=== PATIENT | female | born 1965 | race Caucasian/White ===

== ENCOUNTER 2024-02-14 12:52 | Outpatient (OUT) | payer OTHER, SELFPAY ==
--- NOTE | 2024-02-14 13:01 | XR_ITS ---
The [address] [address] Patient Name: BERNADETTE BAUMANN MRN: [id number] date: 1965 Sex: F Assigned Patient Location: [facility] Current Patient Location: Accession/Order Number: [id number] Exam Date: 02/14/2024 13:15 Report Date: 02/15/2024 06:16 At the request of: ONELIA CASIANO Procedure: XR ribs LT min 3V w CXR1V EXAMINATION: XR ribs LT min 3V w CXR1V HISTORY: Left Rib Pain, Fall COMPARISON: XR chest 04/18/2019 FINDINGS: LUNGS: No significant pulmonary parenchymal abnormalities. PLEURA: No pneumothorax, effusion, or pleural thickening. MEDIASTINUM: No visible mass or adenopathy. CARDIAC: No cardiomegaly or cardiac silhouette abnormality. RIBS: Normal. No significant arthropathy or acute abnormality. OTHER: Negative. XR/XR ribs LT min 3V w CXR1V IMPRESSION: 1. No appreciable rib fracture. 2. No acute cardiopulmonary process. Electronically authenticated by: SUNITA GILES Date: 02/15/2024 06:16
== END 2024-02-14 12:53 | disposition home or self-care (01) ==
LOC: RAD 12:57
PROVIDERS: PCP Internal Medicine; Visit Provider Nurse Practitioner Family
DX: R07.81 Pleurodynia (principal); W19.XXXA Unspecified fall, initial encounter
CPT/HCPCS: 71101

== ENCOUNTER 2025-04-02 13:40 | Outpatient (OUT) | payer BC, SELFPAY ==
--- OUTSIDE RECORDS SUMMARY | 2025-04-02 13:49 | XMS_ITS | CCD ---
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 Name Role Phone MARTHA, DR PATINO Primary Care Unavailable MARTHA, DR PATINO Admitting Unavailable MARTHA, DR PATINO Attending Unavailable MARTHA, DR PATINO Consulting Unavailable EVE, DR SUSI Beebe Consulting Unavailable MARTHA, DR PATINO Consulting Unavailable MARTHA, DR PATINO Primary Care Unavailable MARTHA, DR PATINO Admitting Unavailable MARTHA, DR PATINO Attending Unavailable Ryan Olivas Unavailable Manpreet, [facility] Martha Brooks Admitting U navailable Demboske, [facility] Martha Brooks Attending U navailable Raymond, Alonso Hurst Attending Unavailable RaymondAlonso Admitting Unavailable Demboske, Martha Brooks Attending Unavailable Demboske, Martha Brooks Admitting Unavailable Raymond, Alonso Hurst Admitting Unavailable Raymond, Alonso Hurst Attending Unavailable Raymond, Alonso Hurst Attending Unavailable RaymondAlonso Admitting Unavailable RaymondAlonso Referring Unavailable Demboske, [facility] Martha Brooks Attending U navailable Demboske, [facility] Martha Brooks Attending U navailable Raymond, Alonso Hurst Attending Unavailable RaymondAlonso jessica Referring Unavailable Raymond, Alonso Hurst Admitting Unavailable Raymond, Alonso Hurst Admitting Unavailable RaymondAlonso Attending Unavailable DemboskeMartha Attending Unavailable Demboske, Martha Brooks Attending Unavailable Demboske, Martha Brooks Admitting Unavailable Al-Marrawi, Esteban Doyle Attending Unavailabl e Al-Marrawi, Esteban Doyle Attending Unavailabl e Al-Marrajonnathan, Esteban Doyle Admitting Unavailabl e Demboske, Martha Brooks Admitting Unavailable Demboske, Martha Brooks Attending Unavailable Demboslewis, Martha Brooks Attending Unavailable Demolivia, Martha Brooks Referring Unavailable Al-Marwi, Esteban Doyle Attending Unavailabl e Al-Marrawi, Esteban Doyle Attending Unavailabl e Al-Marrawi, Mhd Yaser Admitting Unavailabl e Al-Marrawi, Mhd Yaser Attending Unavailabl e Al-Marrawi, Mhd Yaser Admitting Unavailabl e Al-Marrawi, Mhd Yaser Attending Unavailabl e Al-Marrawi, Mhd Yaser Attending Unavailabl e Al-Marrawi, Mhd Yaser Attending Unavailabl e Al-Marrawi, Mhd Yaser Attending Unavailabl e Al-Marrawi, Mhd Yaser Attending Unavailabl e Al-Marrawi, Mhd Yaser Attending Unavailabl e Al-Marrawi, Mhd Yaser Admitting Unavailabl e Al-Marrawi, Mhd Yaser Attending Unavailabl e Al-Marrawi, Mhd Yaser Attending Unavailabl e Ryan Olivas DO Primary Care Provider Ryan Olivas DO Attending Provider [phone] Allergies Allergy ClassificationReported Allergen(s)Allergy TypeDate of OnsetReaction(s) Facility (1 source)patient allergy list reviewed by nurse or physiciaPropensity to adverse [id number]:Photobucket Other Medications Current Medications MedicationDrug Class(es)DatesSig (Normalized)Sig (Original)etodolac 400 mg oral tablet (1 source)Nonsteroidal Anti-inflammatory DrugStart: 11-13-7064xgpd 1 tablet by mouth every twelve hoursEtodolac 400 MG 1 tablet with food Orally Twice a day for 30 days Apr, ActiveNo Name (No Known Home Meds) (1 source)Start: 32-15-6881Dl Name (No Known Home Meds) Active March 30, 2025 12:00am Completed/Discontinued Medications MedicationDrug Class(es)DatesSig (Normalized)Sig (Original)azithromycin 250 mg oral tablet (8 sources)Macrolide AntimicrobialStart: 04-11-2024 End: 40-59-1981Yqxharracsgc 250 mg tablet Discontinued 250 MG PO .COMPLEX 6 5 0 April 11, 2024 12:00am 2024 1:38pm 2 tabs on first day followed by 1 tab on days 2-5Start: 81-49-3613Mgmenaxfouyc 250 MG as directed Orally daily for 5 days May, Activebenzonatate 200 mg oral capsule (4 sources)Non-narcotic AntitussiveStart: 04-11-2024 End: 00-56-9064jady 1 capsule by mouth three times dailyBenzonatate 200 mg capsule Discontinued 200 MG PO Three times daily 30 10 0 April 11, 2024 12:00am June 27, 2024 1:38pmbrompheniramine maleate 0.4 mg/ml / dextromethorphan hydrobromide 2 mg/ml / pseudoephedrine hydrochloride 6 mg/ml oral solution (3 sources)alpha-Adrenergic Agonist, Uncompetitive U-cwdxue-U-aspartate Receptor Antagonist, Sigma-1 AgonistStart: 06-29-2024 End: 57-47-2947hrle 1 mL by mouth every six hours as needed Wyleskbonbohpqg-Zeckqsypb-Pm (Bromfed Dm) 2-30-10 mg/5 mL syrup Discontinued 10 ML PO Every 6 hoursas needed for cold symptoms 200 10 0 June 29, 2024 1:00am July 30, 2024 11:38am12 hr guaiFENesin 1200 mg extended release oral tablet (3 sources)Start: 06-29-2024 End: 50-40-1918tmgf 1 tablet by mouth twice daily, then take 1 tablet by mouth every twelve hoursGuaifenesin (Mucinex) 1,200 mg tablet extended release 12hr Discontinued 1200 MG PO Twice daily June 29, 2024 1:00am July 30, 2024 11:38amhyoscyamine sulfate 0.125 mg sublingual tablet (7 sources)Start: 74-19-9289wrmm 1 tablet under the tongue four times daily as neededHyoscyamine Sulfate SL 0.125 MG 1 tablet Sublingual qid as needed for abdominal cramping, diarrhea for 5 days October, Not-Taking/PRNStart: 15-56-3491tsed 1 tablet under the tongue three times daily as neededHyoscyamine Sulfate SL 0.125 MG 1 tablet under the tongue and allow to dissolve as needed Sublingual Three times a day as needed for diarrhea, cramping for 10 days Jul, Not-Taking/PRNmethylPREDNISolone 4 mg oral tablet (5 sources)CorticosteroidStart: 02-19-2024 End: 68-15-6599chfq 1 tablet by mouth onceMethylprednisolone (Medrol (Manny)) 4 mg tablets,dose pack Discontinued 0 PO per package directions 21 0 February 19, 2024 12:00am June 27, 2024 1:38pm PO PER PKG DIRNirmatrelvir-Ritonavir (1 source)Start: 06-27-2024 End: 68-31-7815Rezkgdcprenf-Ritonavir (Paxlovid) 300 mg (150 mg x 2)-100 mg tablets,dose pack Discontinued 0 PO .COMPLEX 30 0 June 27, 2024 1:00am July 30, 2024 11:38am take TWO 150 mg tablets of nirmatrelvir with ONE 100 mg tablet of ritonavir twice daily for 5 days PONirmatrelvir-Ritonavir (Paxlovid) 300 mg (150 mg x 2)-100 mg tablets,dose pack (2 sources)Start: 06-27-2024 End: 11-73-4299Nzebftbqcxcm-Ritonavir (Paxlovid) 300 mg (150 mg x 2)-100 mg tablets,dose pack Discontinued 0 PO .COMPLEX 30 June 27, 2024 12:00am July 30, 2024 10:38am take TWO 150 mg tablets of nirmatrelvir with ONE 100 mg tablet of ritonavir twice daily for 5 days POStart: 85-52-9018Hhzoyhnsvtfl- Ritonavir (Paxlovid) 300 mg (150 mg x 2)-100 mg tablets,dose pack Active 0 PO .MCQCPKW77 June 27, 2024 12:00am take TWO 150 mg tablets of nirmatrelvir with ONE 100 mg tablet of ritonavir twice daily for 5 days POofloxacin 3 mg/ml ophthalmic solution (3 sources)Quinolone AntimicrobialStart: 06-29-2024 End: 41-30-0929qkbd 0.3 drop(s) into the eye(s) four times dailyOfloxacin 0.3 % drops Discontinued 2 DROPS EYE-BOTH Four times daily 10 7 0 June 29, 2024 1:00am July 30, 2024 11:38amStart: 06-29-2024 End: 94-47-5472mlag 0.3 drop(s) into the eye(s) four times dailyOfloxacin 0.3 % drops Discontinued 2 DROPS EYE-BOTH Four times daily 10 June 29, 2024 12:00am July 30, 2024 10:38amondansetron 4 mg disintegrating oral tablet (4 sources)Serotonin-3 Receptor AntagonistStart: 70-13-3751clal 1 tablet by mouth every six hours as needed for nauseaOndansetron 4 MG 1 tablet on the tongue and allow to dissolve Orally Every 6 hours as needed for nausea for 10 days Jul, Not-Taking/PRNoseltamivir 75 mg oral capsule (2 sources)Neuraminidase InhibitorStart: 07-30-2024 End: 83-11-7645uzmc 1 capsule by mouth twice dailyOseltamivir (Tamiflu) 75 mg capsule Discontinued 75 MG PO Twice daily 10 July 30, 2024 1:00am March 30, 2025 3:43pm Problems Active Problems Problem ClassificationProblemDateDocumented DateEpisodic/ChronicAcute bronchitis (5 sources)Acute bronchitis; Translations: [Acute bronchitis due to other specified organisms]EpisodicComplications of surgical procedures or medical care (2 sources)Post-surgical malabsorption; Translations: [Other and unspecified postsurgical nonabsorption]Onset: 47-36-3394UdknerdO Codes: Fall (8 sources)Fall; Translations: [Unspecified fall, initial encounter]02-13-2024 EpisodicFever of unknown origin (2 sources)Fever; Translations: [Fever, unspecified]20-29-5548FgsdxzzvZbmbo and electrolyte disorders (2 sources)DehydrationEpisodicInflammation; infection of eye (except that caused by tuberculosis or sexually transmitteddisease) (3 sources)Bacterial conjunctivitis; Translations: [Unspecified conjunctivitis] 55-51-7739LlmggiavIshtboyxc (3 sources)Influenza due to Influenza A virus; Translations: [Influenza due to other identified influenza virus with other respiratory manifestations] 44-63-0663FcqwpngoJueglnhplkr deficiencies (4 sources)Vitamin D deficiency; Translations: [Vitamin D deficiency, unspecified]Onset: 350735-32-6112YlscojtItjyxghumfjryx (3 sources)Osteoarthritis of left foot; Translations: [Primary osteoarthritis, left ankle and foot]00-60-1652CzeuyiuVqkas connective tissue disease (4 sources)Pain in left foot; Translations: [Pain in left foot]EpisodicOther connective tissue disease (2 sources)Pain in left foot; Translations: [Pain in left foot]EpisodicOther gastrointestinal disorders (2 sources)Diarrhea, unspecifiedEpisodicOther hematologic conditions (2 sources)Personal history of diseases of the blood and blood-forming organs and certain disorders involving the immune mechanism; Translations: [Disease of blood AND/OR blood-forming organ]EpisodicOther lower respiratory disease (6 sources)Rib pain; Translations: [Pleurodynia]55-14-9433NwsvrmkbNbigy lower respiratory disease (4 sources)Pleurodynia; Translations: [Chest pain, unspecified]02-13-2024 EpisodicOther lower respiratory disease (2 sources)Productive cough -clear sputum; Translations: [Cough productive of clear sputum]41-00-5898PjqogbdoNnnms nervous system disorders (1 source)Chronic pain; Translations: [Other chronic pain]ChronicOther upper respiratory infections (2 sources)Acute maxillary sinusitis; Translations: [Acute maxillary sinusitis, unspecified]EpisodicSpondylosis; intervertebral disc disorders; other back problems (6 sources)Cervical spondylosis without myelopathy; Translations: [Other spondylosis with radiculopathy, cervical region]ChronicSpondylosis; intervertebral disc disorders; other back problems (5 sources)Cervical radiculopathy; Translations: [Radiculopathy, cervical region]EpisodicSuperficial injury; contusion (12 sources)Contusion of left foot, initial encounter; Translations: [Contusion of foot]Onset: 68-31-6370WogpawkwGsyoqevlproh (3 sources)CONTACT W/AND (SUSP) EXPOS COVID-19; Translations: [CONTACT W/AND (SUSP) EXPOS COVID-19]Onset: 72-51-9545Pzxnlpnipzay (1 source)Exposure to acute respiratory syndrome coronavirus 2; Translations: [Contact with and (suspected) exposure to COVID-19]Unclassified (1 source)Low back pain, unspecified; Translations: [Low back pain, unspecified] Unclassified (1 source)Contact with and (suspected) exposure to COVID-19; Translations: [Contact with and (suspected) exposure to COVID-19]Viral infection (11 sources)Viral disease; Translations: [Unspecified viral infection, in conditions classified elsewhere and of unspecified site]Onset: 08-02-2018 86-60-7522Xfayxrjw Past or Other Problems Problem ClassificationProblemDateDocumented DateEpisodic/ChronicAbdominal pain (3 sources)Left lower quadrant pain; Translations: [Abdominal pain]Onset: 91-08-6148HxyumpthLllkollcp infection; unspecified site (1 source)Bacterial infectious disease; Translations: [Bacterial infection, unspecified, in conditions classified elsewhere and of unspecified site]Onset: 45-78-4271LlylvtolOyawskkz of mouth; excluding dental (2 sources)Abscess of oral tissue; Translations: [Cellulitis and abscess of mouth]Onset: 41-59-6532CcabddmxHkgjjvidoj infection (1 source)Viral enteritis; Translations: [Intestinal infection due to other organism, NEC]Onset: 62-43-6804ClvfgfpmOqjbk disorders and dislocations; trauma-related (2 sources)Current tear of lateral cartilage AND/OR meniscus of knee; Translations: [Peripheral tear of lateral meniscus, current injury, left knee, initial encounter]Onset: 39-89-5251PecqesrpIeuxcd and vomiting (3 sources)Nausea; Translations: [Nausea]Onset: 44-23-9439VbfyztbfFidj wounds of extremities (1 source)Open wound of upper arm without complication; Translations: [Open wound of upper arm, without mention of complication]Onset: 26-20-9692Ozzsufvi Other connective tissue disease (3 sources)Plantar fascial fibromatosis; Translations: [Plantar fascial fibromatosis]Onset: 846300-47-9271XjvjzkoqOwwiw connective tissue disease (1 source)Plantar fascial fibromatosis; Translations: [Plantar fascial fibromatosis]Onset: 31-81-5578OzkstkhpDalxp gastrointestinal disorders (1 source)History of bariatric surgical procedure; Translations: [Bariatric surgery status]Onset: 75-28-0158BzdjxgytFusef gastrointestinal disorders (2 sources)Diarrhea; Translations: [Diarrhea]Onset: 39-93-5731BbdobgboXbtfh gastrointestinal disorders (1 source)Bariatric surgery status; Translations: [Bariatric surgery status] Onset: 96-34-9467SilpsopnPziac nervous system disorders (1 source)Paresthesia; Translations: [Paresthesia of skin]Onset: 02-06-2019 EpisodicOther nervous system disorders (1 source)Paresthesia of skin; Translations: [Paresthesia of skin]Onset: 20-16-5651SkkskvkzOcose non-traumatic joint disorders (1 source)Arthralgia of the lower leg; Translations: [Pain in joint, lower leg] Onset: 02-01-8564NuezcxvxVviva nutritional; endocrine; and metabolic disorders (1 source)Body mass index 25-29 - overweight; Translations: [Body mass index 27.0-27.9, adult]Onset: 44-11-9226PecobrhhQhozj nutritional; endocrine; and metabolic disorders (1 source)Overweight; Translations: [Overweight]Onset: 89-13-7306YgvuyqqzOeadh nutritional; endocrine; and metabolic disorders (1 source)Overweight; Translations: [Overweight]Onset: 66-56-6821UcwjwszxJrfro screening for suspected conditions (not mental disorders or infectious disease) (2 sources)Blood chemistry abnormal; Translations: [Other abnormal blood chemistry]Onset: 07-57-9781JevxgaalXvsomr media and related conditions (2 sources)Acute non-suppurative otitis media - serous; Translations: [Acute serous otitis media, unspecified ear]Onset: 84-64-6132JfejwuuhRbgv and subcutaneous tissue infections (2 sources)Cellulitis and abscess of face; Translations: [Cellulitis and abscess of face]Onset: 44-57-1258WiujqbckUpjbcjy and strains (2 sources)Sprain of lateral collateral ligament of knee; Translations: [Sprain of lateral collateral ligamentof right knee, initial encounter]Onset: 02-13-2018 EpisodicUnclassified (1 source)CONTACT W/AND (SUSP) EXPOS COVID-19; Translations: [CONTACT W/AND (SUSP) EXPOS COVID-19]Onset: 18-45-8962Vzrtzbtibtcb (4 sources)Acute right-sided low back pain without sciatica; Translations: [Acute right-sided low back pain without sciatica]Unclassified (1 source)Vaccine product containing only acellular Bordetella pertussis and Clostridium tetani and Corynebacterium diphtheriae antigens (medicinal product); Translations: [Wlmstkddru-nimacnn-rvblaybxa, combined [DTP] [DtaP]]Onset: 33-00-8459Bvwpbbgzyfjh (1 source)Body mass index 27.0-27.9, adult; Translations: [Body mass index 27.0- 27.9, adult]Onset: 29-97-8364Xcjbbfpgvoxi (1 source)Bacterial infection, unspecified, in conditions classified elsewhere and of unspecified site; Translations: [Bacterial infection, unspecified, in conditions classified elsewhere and of unspecified site]Onset: 07-26-2016 Unclassified (1 source)Pain in joint, lower leg; Translations: [Pain in joint, lower leg] Onset: 26-78-6962Txmwcrqossxa (1 source)Bwuxwwgjfr-jnvsrml-deenucdsd, combined [DTP] [DtaP]; Translations: [Rszpctypzp-ajisjui-afzcxsgdn, combined [DTP] [DtaP]]Onset: 02-06-2019 Unclassified (1 source)Open wound of upper arm, without mention of complication; Translations: [Open wound of upper arm, without mention of complication]Onset: 38-17-4844Cnzczqrsgheq (1 source)Intestinal infection due to other organism, NEC; Translations: [Intestinal infection due to other organism, NEC]Onset: 23-19-2922Rkvhtvpphgsm (1 source)Unspecified viral infection, in conditions classified elsewhere and of unspecified site; Translations: [Unspecified viral infection, in conditions classified elsewhere and of unspecified site]Onset: 08-02-2018 Results Test NameValueInterpretationReference RangeFacilityPAINTSVILLE ARH HOSPITAL w/ Auto Diffon 02-14-2025 Basophil Absolute0.0 E9/LNormal0.0-0.2[facility] HospitalComment on above:Performed By: #### [id number] #### [facility] [address], [place] [address]Knepjmrjo/100 WBC (Bld)0.9 %Normal0.0-2.0[facility] HospitalComment on above:Performed By: #### [id number] #### [facility] [address], [place] [address]Azx Absolute0.1 E9/LNormal0.0-0.5[facility] Comment on above:Performed By: #### [id number] #### [facility] [address], [place] [address]Zrmhkktmddt/100 WBC (Bld)2.7 %Normal0.0-8.0[facility] HospitalComment on above:Performed By: #### [id number] #### [facility] [address], [place] [address]Sjpyuuhrkeq distribution width (RBC) [Ratio]14.0 %Normal 10.9-14.2FOhio State East HospitalComment on above:Performed By: #### [id number] #### [facility] [address], [place] [address]Wweukstrdo (Bld) [Volume fraction]44.0 %Zsycvw61.0-46.0[facility] HospitalComment on above:Performed By: #### [id number] #### [facility] [address], [place] [address]Banldcsqaq (Bld) [Mass/Vol]15.2 g/rNMphwaw83.0-16.0[facility] HospitalComment on above:Performed By: #### [id number] #### [facility] [address] [place] [address]Ifqss Absolute1.2 E9/LNormal1.0-4.0[facility] Comment on above:Performed By: #### [id number] #### [facility] [address], [place] [address]Mcsvqatdxjo/100 WBC (Bld)33.1 %Qdaeyp34.0-50.0[facility] HospitalComment on above:Performed By: #### [id number] #### [facility] [address], [place] [address]HLQ (RBC) [Entitic mass]30.9 ezXpogtv45.0-34.0[facility] HospitalComment on above:Performed By: #### [id number] #### [facility] [address], [place] [address]VZLL (RBC) [Mass/Vol]34.6 g/tGJnbpgq36.4-36.0[facility] HospitalComment on above:Performed By: #### [id number] #### [facility] [address] [place] [address]UQS (RBC) [Entitic vol]89.4 cRBeniiv40.0-100.0[facility] HospitalComment on above:Performed By: #### [id number] #### [facility] [address], [place] [address]Lzif Absolute0.4 E9/LNormal0.2-1.0[facility] Comment on above:Performed By: #### [id number] #### [facility] [address] [place] [address]Qyysyyicx/100 WBC (Bld)10.4 %Normal4.0-14.0[facility] HospitalComment on above:Performed By: #### [id number] #### [facility] [address] [place] [address]Ogrtka Absolute1.9 E9/LLow2.0-7.5FOhio State East Hospital Comment on above:Performed By: #### [id number] #### [facility] [address], [place] [address]Ghldry Auto52.9 %Rbymte91.0-75.0[facility] Comment on above:Performed By: #### [id number] #### [facility] [address], [place] [address]Iaubqlrz921.0 E9/VIbgvdh017.0-500.0[facility] Comment on above:Performed By: #### [id number] #### [facility] [address], [place] [address]Gokatann mean volume (Bld) [Entitic vol]7.8 fLNormal6.4-10.8 [facility] HospitalComment on above:Performed By: #### [id number] #### [facility] [address] [place] [address]UYO3.9 E12/LNormal4.3-5.9[facility] HospitalComment on above:Performed By: #### [id number] #### [facility] [address] [place] [address]QJI3.7 E9/LLow4.0-11.0[facility] HospitalComment on above:Performed By: #### [id number] #### [facility] [address] [place] [address]FBYhm 93-43-4035Iiglbax [Mass/Vol]4.1 g/dLNormal3.3-5.0[facility] HospitalComment on above:Performed By: #### [id number] #### [facility] [address] [place] [address]Ilikrjd/Globulin [Mass ratio]1.6 {ratio}Normal1.1-2.2FOhio State East HospitalComment on above:Performed By: #### [id number] #### [facility] [address] [place] [address]Jyi Phos96 Int._Unit/NRifqts09-24AnsgsyFostoria City Hospital Comment on above:Performed By: #### [id number] #### [facility] [address] [place] [address]OQN65 Int._Unit/LNormal6-46[facility] HospitalComment on above:Performed By: #### [id number] #### [facility] [address] [place] [address]Tvhzd gap [Moles/Vol]8 mmol/LNormal6-16[facility] HospitalComment on above:Performed By: #### [id number] #### [facility] [address] [place] [address]XUD93 Int._Unit/LNormal5-43[facility] HospitalComment on above:Performed By: #### [id number] #### [facility] [address] [place] [address]Vpmp Total0.4 mg/dLNormal0.0-1.1FOhio State East Hospital Comment on above:Performed By: #### [id number] #### [facility] [address], [place] [address]ZYT/Creat Ratio23 No ZgcrpDygr83-44HthdzsFostoria City Hospital Comment on above:Performed By: #### [id number] #### [facility] [address], [place] [address]Muqekho [Mass/Vol]9.4 mg/dLNormal8.9-11.1FOhio State East HospitalComment on above:Performed By: #### [id number] #### [facility] [address], [place] [address]Oasdynrz [Moles/Vol]105 mmol/BYmucyi651-440OedyxgFostoria City HospitalComment on above:Performed By: #### [id number] #### [facility] [address], [place] [address]HP8 [Moles/Vol]31 mmol/DVdrqiw74-23DhsthgFostoria City Hospital Comment on above:Performed By: #### [id number] #### [facility] [address], [place] [address]Tekexuydvc [Mass/Vol]0.6 mg/dLNormal0.5-1.3FOhio State East HospitalComment on above:Performed By: #### [id number] #### [facility] [address], [place] [address]Twwiysnc (S) [Mass/Vol]2.5 g/dLNormal1.4-4.0[facility] HospitalComment on above:Performed By: #### [id number] #### [facility] [address], [place] [address]Fhucrzk [Mass/Vol]91 mg/tMRfqmah95-671OzdowaFostoria City HospitalComment on above:Performed By: #### [id number] #### [facility] [address], [place] [address]Neoclldjf [Moles/Vol]4.3 mmol/LNormal3.5-5.3FOhio State East HospitalComment on above:Performed By: #### [id number] #### [facility] [address], [place] [address]Hhbwhre [Mass/Vol]6.6 g/dLNormal6.0-7.8[facility] HospitalComment on above:Performed By: #### [id number] #### [facility] [address], [place] [address]Vjccyl [Moles/Vol]140 mmol/MVbcdnd902-731UradvmFostoria City HospitalComment on above:Performed By: #### [id number] #### [facility] [address] [place] [address]Lbcz nitrogen [Mass/Vol]14 mg/dLNormal5-21[facility] HospitalComment on above:Performed By: #### [id number] #### [facility] [address] [place] [address]Tfovotcbxk 84-26-0573Dhqgzvbx Lvl16 ng/qLXwvydw93-377DmiyucFostoria City HospitalComment on above:Performed By: #### [id number] #### [facility] [address] [place] [address]Vrmpabus 84-86-4505Nkgmwb Lvl>22.3Normal>=6.7FOhio State East HospitalComment on above:Performed By: #### [id number] #### [facility] [address], [place] [address]Myapty 10-44-0324Ukvw62 microgram/vNKungbz77-477MeshoiFostoria City HospitalComment on above:Performed By: #### [id number] #### [facility] [address] [place] [address]Simz Saturationon 10-61-8523Asxm Sat17 %Ixc74-78CiykrlFostoria City HospitalComment on above:Performed By: #### [id number] #### [facility] [address] [facility] [place] [place] [address]LTSB610 microgram/qIPsva436-851VptlijFostoria City Hospital Comment on above:Performed By: #### [id number] #### [facility] [address] [facility] [place] [address]Sjkmyxwifjklx 70-95-0043Qcwyfzmdnsp [Mass/Vol]322 mg/dLNormal 200-370[facility] City HospitalComment on above:Performed By: #### [id number] #### [facility] [address], [place] [address]Zag B12on 17-21-6626Atlpdqfkz (Vitamin B12) [Mass/Vol]121 pg/mL Tffmoy98-7263LcfaacFostoria City HospitalComment on above:Performed By: #### [id number] #### [facility] [address], [place] [address]jRIVgk 74-28-3128nSJM693 mL/min/1.73 d6Nrepdu>=59F[facility] City HospitalComment on above:Performed By: #### [id number] #### [facility] [address], [place] [address]KB Pat Eduon [id number] Pat EduED Pat Edu Nutrition Iron-Rich Diet Iron is a mineral that helps your body produce hemoglobin. Hemoglobin is a protein in red blood cells that carries oxygen to your body's tissues. Eating too little iron may cause you to feel weak andtired, and it can increase your risk of infection. Iron is naturally found in many foods, and many foods have iron added to them (are iron-fortified). You may need to follow an iron-rich diet if you do not have enough iron in your body due to certainmedical conditions. The amount of iron that you need each day depends on your age, your sex, and any medical conditions you have. Follow instructions from your health care provider or a dietitian about how much iron you should eat each day. What are tips for following this plan? Reading food labels ??? Check food labels to see how many milligrams (mg) of iron are in each serving. Cooking ??? Cook foods in pots and pans that are made from iron. ??? Take these steps to make it easier for your body to absorb iron from certain foods: ? Soak beans overnight before cooking. ? Soak whole grains overnight and drain them before using. ? Ferment flours before baking, such as by using yeast in bread dough. Meal planning ??? When you eat foods that contain iron, you should eat them with foods that are high in vitamin C. These include oranges, peppers, tomatoes, potatoes, and mangoes. Vitamin C helps your body absorb iron. ??? Certain foods and drinks prevent your body from absorbing iron properly. Avoid eating these foods in the same meal as iron-rich foods or with iron supplements. These foods include: ? Coffee, black tea, and red wine. ? Milk, dairy products, and foods that are high in calcium. ? Beans and soybeans. ? Whole grains. General information ??? Take iron supplements only as told by your health care provider. An overdose of iron can be life-threatening. If you were prescribed iron supplements, take them with orange juice or a vitamin C supplement. ??? When you eat iron-fortified foods or take an iron supplement, you should also eat foods that naturally contain iron, such as meat, poultry, and fish. Eating naturally iron-rich foods helps your body absorb the iron that is added to other foods or contained in a supplement. ??? Iron from animal sources is better absorbed than iron from plant sources. What foods should I eat? Fruits Prunes. Raisins. Eat fruits high in vitamin C, such as oranges, grapefruits, and strawberries, with iron-rich foods. Vegetables Spinach (cooked). Green peas. Broccoli. Fermented vegetables. Eat vegetables high in vitamin C, such as leafy greens, potatoes, harvey peppers, and tomatoes, with iron-rich foods. Grains Iron-fortified breakfast cereal. Iron-fortified whole-wheat bread. Enriched rice. Sprouted grains. Meats and other proteins Beef liver. Beef. [place]. Chicken. Oysters. Shrimp. Tuna. Sardines. Chickpeas. Nuts. Tofu. Pumpkin seeds. Beverages Tomato juice. Fresh orange juice. Prune juice. Hibiscus tea. Iron-fortified instant breakfast shakes. Sweets and desserts Blackstrap molasses. Seasonings and condiments Tahini. Fermented soy sauce. Other foods Wheat germ. The items listed above may not be a complete list of recommended foods and beverages. Contact a dietitian for more information. What foods should I limit? These are foods that should be limited while eating iron-rich foods as they can reduce the absorption of iron in your body. Grains Whole grains. Bran cereal. Bran flour. Meats and other proteins Soybeans. Products made from soy protein. Black beans. Lentils. Mung beans. Split peas. Dairy Milk. Cream. Cheese. Yogurt. Cottage cheese. Beverages Coffee. Black tea. Red wine. Sweets and desserts [place]. Chocolate. Ice cream. Seasonings and condiments Basil. Oregano. Large amounts of parsley. The items listed above may not be a complete list of foods and beverages you should limit. Contact a dietitian for more information. Summary ??? Iron is a mineral that helps your body produce hemoglobin. Hemoglobin is a protein in red bloodcells that carries oxygen to your body's tissues. ??? Iron is naturally found in many foods, and many foods have iron added to them (are iron-fortified). ??? When you eat foods that contain iron, you should eat them with foods that are high in vitamin C. Vitamin C helps your body absorb iron. ??? Certain foods and drinks prevent your body from absorbing iron properly, such as whole grains and dairy products. You should avoid eating these foods in the same meal as iron-rich foods or with iron supplements. This information is not intended to replace advice given to you by your health care provider. Make sure you discuss any questions you have with your health care provider. Document Revised: 05/09/2021 Document Reviewed: 05/09/2021 [employer] Patient Education ? 2023 [employer]NormalFostoria City Hospital CBC w/ Auto Diffon 96-11-3318Ntmmltkzp/100 WBC (Bld)0.9 %Normal0.0-2.0[facility] City HospitalComment on above:Performed By: #### [id number] #### [facility] [address] [place] [address]24[address]Gdbluhvdv/Leukocytes Auto (Bld) [Pure # fraction]0.0 E9/LNormal 0.0-0.2FOhio State East HospitalComment on above:Performed By: #### [id number] #### [facility] [address] [place] [address] 18633Kberhxvziap (Bld) [#/Vol]0.1 E9/LNormal0.0-0.5FOhio State East HospitalComment on above:Performed By: #### [id number] #### [facility] [address] [place] [address] 63317Hvcxubkgnhf/100 WBC (Bld)2.1 %Normal0.0-8.0[facility] City HospitalComment on above:Performed By: #### [id number] #### [facility] [address] [place] [address] 29403Ljazmrsauhs distribution width (RBC) [Ratio]14.2 %Normal 10.9-14.2FOhio State East HospitalComment on above:Performed By: #### [id number] #### [facility] [address] [place] [address] 82483Zdgvduxceo (Bld) [Volume fraction]41.2 %Aebvxw56.0-46.0[facility] City HospitalComment on above:Performed By: #### [id number] #### [facility] [address] [place] [address] 71212Pffytecqal (Bld) [Mass/Vol]14.3 g/hWDhnirl42.0-16.0[facility] City HospitalComment on above:Performed By: #### [id number] #### [facility] [address] [place] [address] 13672Nhvmhoukzbw (Bld) [#/Vol]1.3 E9/LNormal1.0-4.0[facility] City HospitalComment on above:Performed By: #### [id number] #### [facility] [address] [place] [address] 16992Czpifbgvusd/100 WBC (Bld)30.6 %Keqssm71.0-50.0[facility] City HospitalComment on above:Performed By: #### [id number] #### [facility] [address] [place] [address] 63490IMJ (RBC) [Entitic mass]30.8 hlMztmqf28.0-34.0[facility] HospitalComment on above:Performed By: #### [id number] #### [facility] [address] [place] [address] 98816PJII (RBC) [Mass/Vol]34.6 g/iCTvhwov72.4-36.0[facility] HospitalComment on above:Performed By: #### [id number] #### [facility] [address] [place] [address] 43574EZX (RBC) [Entitic vol]89.0 uRNvyaei58.0-100.0[facility] HospitalComment on above:Performed By: #### [id number] #### [facility] [address] [place] [address] 77966Kbrlarjbp (Bld) [#/Vol]0.5 E9/LNormal0.2-1.0[facility] HospitalComment on above:Performed By: #### [id number] #### [facility] [address] [place] [address] 82280Mcwdwhexujf (Bld) [#/Vol]2.3 E9/LNormal2.0-7.5FOhio State East HospitalComment on above:Performed By: #### [id number] #### [facility] [address] [place] [address] 49652Lhdknixtadw/100 WBC (Bld)55.1 %Tnhkzq01.0-75.0[facility] HospitalComment on above:Performed By: #### [id number] #### [facility] [address] [place] [address] 465[address]Slizigrh mean volume (Bld) [Entitic vol]7.9 fLNormal6.4-10.8 [facility] HospitalComment on above:Performed By: #### [id number] #### [facility] [address] [place] [address] 28778Eqmyrkoph (Bld) [#/Vol]307.0 E9/HRkxqik145.0-500.0[facility] HospitalComment on above:Performed By: #### [id number] #### [facility] [address] [place] [address] 38044JXY (Bld) [#/Vol]4.6 E12/LNormal4.3-5.9[facility] HospitalComment on above:Performed By: #### [id number] #### [facility] [address] [place] [address] 57858RKD corrected for nucl RBC Auto (Bld) [#/Vol]4.2 E9/LNormal 4.0-11.0[facility] HospitalComment on above:Performed By: #### [id number] #### [facility] [address] [place] [address] 28913EXUrq 55-34-5128Xlzhfpc [Mass/Vol]3.8 g/dLNormal3.3-5.0[facility] HospitalComment on above:Performed By: #### [id number] #### [facility] [address] [place] [address] 706[address]Aubyeil/Globulin (S) [Mass conc ratio]1.1Gltclo0.1-2.2FOhio State East HospitalComment on above:Performed By: #### [id number] #### [facility] [address] [place] [address] 92196TDJ [Catalytic activity/Vol]89 Int._Unit/OOsjglf30-96DkuwrbFostoria City HospitalComment on above:Performed By: #### [id number] #### [facility] [address] [place] [address] 835[address]FJY No additional P-5'-P [Catalytic activity/Vol]15 Int._Unit/L Normal6-46[facility] City HospitalComment on above:Performed By: #### [id number] #### [facility] [address], [place] [address]Vumvq gap [Moles/Vol]8 mmol/LNormal6-16[facility] HospitalComment on above:Performed By: #### [id number] #### [facility] [address], [place] [address]VOW [Catalytic activity/Vol]17 Int._Unit/LNormal5-43[facility] HospitalComment on above:Performed By: #### [id number] #### [facility] [address], [place] [address]Vwladegix [Mass/Vol]0.4 mg/dLNormal0.0-1.1FOhio State East HospitalComment on above:Performed By: #### [id number] #### [facility] [address] [place] [address] 83860Dfblvoh [Mass/Vol]9.2 mg/dLNormal8.9-11.1FOhio State East HospitalComment on above:Performed By: #### [id number] #### [facility] [address], [place] [address]Cguuopzs [Moles/Vol]106 mmol/KQobtsu443-984TbjrdxFostoria City HospitalComment on above:Performed By: #### [id number] #### [facility] [address] [place] [address] 739[address]GL0 [Moles/Vol]31 mmol/EPdzhzl85-88BjznqqFostoria City Hospital Comment on above:Performed By: #### [id number] #### [facility] [address], [place] [address]Czxsbpvtzj [Mass/Vol]0.6 mg/dLNormal0.5-1.3FOhio State East HospitalComment on above:Performed By: #### [id number] #### [facility] [address], [place] [address]Gcngzhhm (S) [Mass/Vol]2.5 g/dLNormal1.4-4.0[facility] HospitalComment on above:Performed By: #### [id number] #### [facility] [address], [place] [address]Dwduyff [Mass/Vol]87 mg/oCFskurr85-079GaecvfFostoria City HospitalComment on above:Performed By: #### [id number] #### [facility] [address], [place] [address]Hebppedso [Moles/Vol]4.1 mmol/LNormal3.5-5.3FOhio State East HospitalComment on above:Performed By: #### [id number] #### [facility] [address], [place] [address]Entyhuk [Mass/Vol]6.3 g/dLNormal6.0-7.8[facility] HospitalComment on above:Performed By: #### [id number] #### [facility] [address] [place] [address] 42[address]Wnkloo [Moles/Vol]141 mmol/JHacuwl700-507CattokFostoria City HospitalComment on above:Performed By: #### [id number] #### [facility] [address], [place] [address]Zyqc nitrogen [Mass/Vol]12 mg/dLNormal5-21[facility] HospitalComment on above:Performed By: #### [id number] #### [facility] [address], [place] [address]Nsyr nitrogen/Creatinine [Mass ratio]20 No EqzaqSsknvi05-65 [facility] HospitalComment on above:Performed By: #### [id number] #### [facility] [address], [place] [address]Yvjylvmwrw 14-39-1060Hhnebewf [Mass/Vol]46 ng/qLSowtnr80-107 [facility] HospitalComment on above:Performed By: #### [id number] #### [facility] [address], [place] [address]Idylth 53-46-2150Msst [Mass/Vol]78 microgram/cDCxtqth64-065 [facility] HospitalComment on above:Performed By: #### [id number] #### [facility] [address], [place] [address]Ymck Saturationon 71-89-2800Nnbz binding capacity [Mass/Vol]384 microgram/lSEbznpa464-051VqryryFostoria City HospitalComment on above:Performed By: #### [id number] #### [facility] [address] [place] [address] 85[address]Kwng saturation [Mass fraction]20 %Vgierf20-57MckmjvFostoria City HospitalComment on above:Performed By: #### [id number] #### [facility] [address] [place] [address]Gjydycxwyycoo 96-83-5089Suwyxfjwtyb [Mass/Vol]274 mg/dLNormal 200-370[facility] HospitalComment on above:Performed By: #### [id number] #### [facility] [address] [place] [address] 635[address]bSPVkf 23-98-9906mDUV221 mL/min/1.73 i2Qpjdqy>=59[facility] HospitalComment on above:Performed By: #### [id number] #### [facility] [address] [place] [address] 324[address]NJG w/ Auto Diffon 19-81-6981Cegfigszx/100 WBC (Bld)0.9 %Normal 0.0-2.0[facility] HospitalComment on above:Performed By: #### [id number] #### [facility] [address] [place] [address]Oysnoupon/Leukocytes Auto (Bld) [Pure # fraction]0.0 E9/LNormal 0.0-0.2FOhio State East HospitalComment on above:Performed By: #### [id number] #### [facility] [address] [place] [address] 610[address]Ojhgiwqdlyt (Bld) [#/Vol]0.1 E9/LNormal0.0-0.5[facility] HospitalComment on above:Performed By: #### [id number] #### [facility] [address], [place] [address]Pezspwzjqrb/100 WBC (Bld)2.2 %Normal0.0-8.0[facility] HospitalComment on above:Performed By: #### [id number] #### [facility] [address] [place] [address] 685[address]Zwrczcwqdih distribution width (RBC) [Ratio]27.4 %High10.9-14.2 [facility] HospitalComment on above:Performed By: #### [id number] #### [facility] [address] [place] [address] 22599Nmlchjnzqh (Bld) [Volume fraction]40.6 %Fmzbcc95.0-46.0[facility] HospitalComment on above:Performed By: #### [id number] #### [facility] [address] [place] [address] 520[address]Jsjullfwpb (Bld) [Mass/Vol]13.6 g/zLRepask53.0-16.0[facility] HospitalComment on above:Performed By: #### [id number] #### [facility] [address] [place] [address] 59168Mmecdwvwmgg Auto Ql (Bld)PRESENTInvalid Interpretation Code [facility] HospitalComment on above:Performed By: #### [id number] #### [facility] [address] [place] [address] 10877Bpfojnsttbj (Bld) [#/Vol]1.6 E9/LNormal1.0-4.0[facility] HospitalComment on above:Performed By: #### [id number] #### [facility] [address] [place] [address] 645[address]Cautihsedcc/100 WBC (Bld)30.3 %Qapxyp30.0-50.0[facility] HospitalComment on above:Performed By: #### [id number] #### [facility] [address] [place] [address] 95325QZO (RBC) [Entitic mass]26.9 pgLow27.0-34.0[facility] HospitalComment on above:Performed By: #### [id number] #### [facility] [address] [place] [address] 03208ZLWO (RBC) [Mass/Vol]33.4 g/iHDwqoqx45.4-36.0[facility] HospitalComment on above:Performed By: #### [id number] #### [facility] [address] [place] [address] 32029BKP (RBC) [Entitic vol]80.5 cGLwfole58.0-100.0[facility] HospitalComment on above:Performed By: #### [id number] #### [facility] [address] [place] [address] 32498Dexkqefdi (Bld) [#/Vol]0.5 E9/LNormal0.2-1.0[facility] HospitalComment on above:Performed By: #### [id number] #### [facility] [address] [place] [address] 62667Fenvqulukod (Bld) [#/Vol]3.0 E9/LNormal2.0-7.5FOhio State East HospitalComment on above:Performed By: #### [id number] #### [facility] [address] [place] [address] 45395Npcrlkstbmf/100 WBC (Bld)57.5 %Ifodyd05.0-75.0[facility] HospitalComment on above:Performed By: #### [id number] #### [facility] [address] [place] [address] 51293Mxwdxfqv mean volume (Bld) [Entitic vol]7.2 fLNormal6.4-10.8 [facility] HospitalComment on above:Performed By: #### [id number] #### [facility] [address] [place] [address] 877[address]Mxalxpest (Bld) [#/Vol]340.0 E9/YZyysfj638.0-500.0[facility] HospitalComment on above:Performed By: #### [id number] #### [facility] [address] [place] [address] 44501RQQ (Bld) [#/Vol]5.1 E12/LNormal4.3-5.9[facility] HospitalComment on above:Performed By: #### [id number] #### [facility] [address] [place] [address] 05137XFB size Nom (Bld)SEE MORPHOLOGYInvalid Interpretation Code [facility] HospitalComment on above:Performed By: #### [id number] #### [facility] [address] [place] [address] 59[address]IXY corrected for nucl RBC Auto (Bld) [#/Vol]5.1 E9/LNormal 4.0-11.0[facility] HospitalComment on above:Performed By: #### [id number] #### [facility] [address] [place] [address] 98118HNSha 82-08-5392Udhbeel [Mass/Vol]3.9 g/dLNormal3.3-5.0[facility] HospitalComment on above:Performed By: #### [id number] #### [facility] [address] [place] [address] 955[address]Fzujgeo/Globulin (S) [Mass conc ratio]1.9Ewiuyp5.1-2.2FOhio State East HospitalComment on above:Performed By: #### [id number] #### [facility] [address] [place] [address] 49668SIT [Catalytic activity/Vol]91 Int._Unit/RIjwatp79-25MoptfgFostoria City HospitalComment on above:Performed By: #### [id number] #### [facility] [address] [place] [address] 701[address]WXZ No additional P-5'-P [Catalytic activity/Vol]31 Int._Unit/L Normal6-46[facility] HospitalComment on above:Performed By: #### [id number] #### [facility] [address], [place] [address]Rqvgg gap [Moles/Vol]10 mmol/LNormal6-16[facility] HospitalComment on above:Performed By: #### [id number] #### [facility] [address], [place] [address]ELT [Catalytic activity/Vol]26 Int._Unit/LNormal5-43[facility] HospitalComment on above:Performed By: #### [id number] #### [facility] [address], [place] [address]Gsejmapeq [Mass/Vol]0.2 mg/dLNormal0.0-1.1FOhio State East HospitalComment on above:Performed By: #### [id number] #### [facility] [address], [place] [address]Dowbetd [Mass/Vol]9.1 mg/dLNormal8.9-11.1FOhio State East HospitalComment on above:Performed By: #### [id number] #### [facility] [address], [place] [address]Klhotaib [Moles/Vol]103 mmol/QVcsspm179-256WpudmaFostoria City HospitalComment on above:Performed By: #### [id number] #### [facility] [address], [place] [address]XR3 [Moles/Vol]29 mmol/UKrnysj77-23SgbmalFostoria City Hospital Comment on above:Performed By: #### [id number] #### [facility] [address], [place] [address]Cupitucreb [Mass/Vol]0.6 mg/dLNormal0.5-1.3FOhio State East HospitalComment on above:Performed By: #### [id number] #### [facility] [address], [place] [address]Hlcltllx (S) [Mass/Vol]2.6 g/dLNormal1.4-4.0[facility] HospitalComment on above:Performed By: #### [id number] #### [facility] [address], [place] [address]Xrngqlg [Mass/Vol]89 mg/oRAygqke26-045GrqkxyFostoria City HospitalComment on above:Performed By: #### [id number] #### [facility] [address], [place] [address]Uaylkatfd [Moles/Vol]4.3 mmol/LNormal3.5-5.3FOhio State East HospitalComment on above:Performed By: #### [id number] #### [facility] [address], [place] [address]Atjajxj [Mass/Vol]6.5 g/dLNormal6.0-7.8[facility] HospitalComment on above:Performed By: #### [id number] #### [facility] [address], [place] [address]Keezmv [Moles/Vol]138 mmol/HLuqdzy571-263BhdjomFostoria City HospitalComment on above:Performed By: #### [id number] #### [facility] [address], [place] [address]Noxg nitrogen [Mass/Vol]16 mg/dLNormal5-21[facility] HospitalComment on above:Performed By: #### [id number] #### [facility] [address], [place] [address]Tzed nitrogen/Creatinine [Mass ratio]27 No JekqtWnpu09-33BnqheqFostoria City HospitalComment on above:Performed By: #### [id number] #### [facility] [address], [place] [address]Qcjeuvyudu 95-08-2884Pifkigkt [Mass/Vol]47 ng/cCXrvtep98-811 [facility] HospitalComment on above:Performed By: #### [id number] #### [facility] [address], [place] [address]Zolqwl 09-73-4149Gepl [Mass/Vol]63 microgram/sYEkjphc24-806 [facility] HospitalComment on above:Performed By: #### [id number] #### [facility] [address], [place] [address]Yxus Saturationon 36-90-5465Mfbi binding capacity [Mass/Vol]358 microgram/lURkgrrx369-250DcfwyrFostoria City HospitalComment on above:Performed By: #### [id number] #### [facility] [address] [place] [address] 30826Igyw saturation [Mass fraction]18 %Ffc57-78MboilwFostoria City HospitalComment on above:Performed By: #### [id number] #### [facility] [address] [place] [address] 497[address]Knjticguqkhss 24-20-2508Mjtxyzenzzd [Mass/Vol]256 mg/dLNormal 200-370[facility] HospitalComment on above:Performed By: #### [id number] #### [facility] [address] [place] [address] 30265eQRLdf 58-60-7843eCLG080 mL/min/1.73 d5Lhxdgq>=59[facility] HospitalComment on above:Performed By: #### [id number] #### [facility] [address] [place] [address] 51834LOB w/ Auto Diffon 38-96-6875Oxxkrarha/100 WBC (Bld)1.0 %Normal 0.0-2.0[facility] HospitalComment on above:Performed By: #### [id number] #### [facility] [address] [place] [address] 27265Hsqowilij/Leukocytes Auto (Bld) [Pure # fraction]0.0 E9/LNormal 0.0-0.2FOhio State East HospitalComment on above:Performed By: #### [id number] #### [facility] [address] [place] [address] 601[address]Uhxnlstjkqr (Bld) [#/Vol]0.1 E9/LNormal0.0-0.5FOhio State East HospitalComment on above:Performed By: #### [id number] #### [facility] [address], [place] [address]Yiizspzecff/100 WBC (Bld)2.1 %Normal0.0-8.0[facility] HospitalComment on above:Performed By: #### [id number] #### [facility] [address] [place] [address]Fidabrqisyq distribution width (RBC) [Ratio]19.4 %High10.9-14.2 [facility] HospitalComment on above:Performed By: #### [id number] #### [facility] [address] [place] [address] 936[address]Sjqcyrbdti (Bld) [Volume fraction]28.7 %Low34.0-46.0[facility] HospitalComment on above:Performed By: #### [id number] #### [facility] [address] [place] [address] 570[address]Sfgiesthxb (Bld) [Mass/Vol]8.6 g/dLLow12.0-16.0[facility] HospitalComment on above:Performed By: #### [id number] #### [facility] [address] [place] [address] 744[address]Huqjvwaqbsf Auto Ql (Bld)PRESENTInvalid Interpretation Code [facility] HospitalComment on above:Performed By: #### [id number] #### [facility] [address] [place] [address] 01148Fnhpldjefou (Bld) [#/Vol]1.1 E9/LNormal1.0-4.0[facility] HospitalComment on above:Performed By: #### [id number] #### [facility] [address] [place] [address] 26957Xbqjasrlinm/100 WBC (Bld)30.9 %Yirawk48.0-50.0[facility] HospitalComment on above:Performed By: #### [id number] #### [facility] [address] [place] [address] 20470CPU (RBC) [Entitic mass]19.8 pgLow27.0-34.0[facility] HospitalComment on above:Performed By: #### [id number] #### [facility] [address] [place] [address] 28057WGCR (RBC) [Mass/Vol]30.1 g/dLLow31.4-36.0[facility] City HospitalComment on above:Performed By: #### [id number] #### [facility] [address] [place] [address] 14455XQW (RBC) [Entitic vol]65.7 fLLow80.0-100.0[facility] City HospitalComment on above:Performed By: #### [id number] #### [facility] [address] [place] [address] 81161Tjnskcqmsk Ql (Bld)PRESENTInvalid Interpretation CodeFostoria City HospitalComment on above:Performed By: #### [id number] #### [facility] [address] [place] [address] 83396Cfileibws (Bld) [#/Vol]0.3 E9/LNormal0.2-1.0[facility] City HospitalComment on above:Performed By: #### [id number] #### [facility] [address] [place] [address] 16613Dlksduewhtl (Bld) [#/Vol]1.9 E9/LLow2.0-7.5FOhio State East HospitalComment on above:Performed By: #### 4342813 #### [facility] [address] [place] [address] 997[address]Eqsuohyrubo/100 WBC (Bld)56.8 %Rczehv69.0-75.0[facility] City HospitalComment on above:Performed By: #### 2476370 #### [facility] [address] [place] [address] 58578Eojwxito mean volume (Bld) [Entitic vol]8.2 fLNormal6.4-10.8 [facility] City HospitalComment on above:Performed By: #### [id number] #### [facility] [address], [place] [address]Mewpfvxyd (Bld) [#/Vol]311.0 E9/BIzpjxk913.0-500.0[facility] City HospitalComment on above:Performed By: #### [id number] #### [facility] [address] [place] [address] 91070GKR (Bld) [#/Vol]4.4 E12/LNormal4.3-5.9[facility] City HospitalComment on above:Performed By: #### [id number] #### [facility] [address] [place] [address] 25901ONN size Nom (Bld)SEE MORPHOLOGYInvalid Interpretation Code [facility] City HospitalComment on above:Performed By: #### [id number] #### [facility] [address] [place] [address] 52702VAE corrected for nucl RBC Auto (Bld) [#/Vol]3.4 E9/LLow 4.0-11.0[facility] City HospitalComment on above:Performed By: #### 7443884 #### [facility] [address] [place] [address] 15052NVYxf 23-61-5960Oveieub [Mass/Vol]4.0 g/dLNormal3.3-5.0[facility] City HospitalComment on above:Performed By: #### [id number] #### [facility] [address] [place] [address] 965[address]Bggalrx/Globulin (S) [Mass conc ratio]1.4Bvzjje2.1-2.2[facility] Cross HospitalComment on above:Performed By: #### [id number] #### [facility] [address] [place] [address] 74399HSD [Catalytic activity/Vol]108 Int._Unit/DCkue11-35CeskwiFostoria City HospitalComment on above:Performed By: #### 9385546 #### [facility] [address] [place] [address] 91787WNJ No additional P-5'-P [Catalytic activity/Vol]15 Int._Unit/L Normal6-46[facility] City HospitalComment on above:Performed By: #### [id number] #### [facility] [address], [place] [address]SNR [Catalytic activity/Vol]20 Int._Unit/LNormal5-43[facility] City HospitalComment on above:Performed By: #### [id number] #### [facility] [address], [place] [address]Xmqypjsel [Mass/Vol]0.2 mg/dLNormal0.0-1.1FOhio State East HospitalComment on above:Performed By: #### 7105135 #### [facility] [address], [place] [address]Ghenxkzn (S) [Mass/Vol]2.6 g/dLNormal1.4-4.0[facility] City HospitalComment on above:Performed By: #### 1026467 #### [facility] [address], [place] [address]Hhwczob [Mass/Vol]6.6 g/dLNormal6.0-7.8[facility] City HospitalComment on above:Performed By: #### 8930192 #### [facility] [address], [place] [address]Xsdot gap [Moles/Vol]11 mmol/LNormal6-16[facility] City HospitalComment on above:Performed By: #### [id number] #### [facility] [address], [place] [address]Ldyupxi [Mass/Vol]9.0 mg/dLNormal8.9-11.1FOhio State East HospitalComment on above:Performed By: #### [id number] #### [facility] [address], [place] [address]Bmznuslz [Moles/Vol]104 mmol/NIwwlxt930-042ZpihpvFostoria City HospitalComment on above:Performed By: #### 0234255 #### [facility] [address], [place] [address]HJ7 [Moles/Vol]27 mmol/ORkjdoy81-15MrvtuzFostoria City Hospital Comment on above:Performed By: #### [id number] #### [facility] [address], [place] [address]Mcdqmygaah [Mass/Vol]0.6 mg/dLNormal0.5-1.3FOhio State East HospitalComment on above:Performed By: #### 9998593 #### [facility] [address], [place] [address]Adnhnqc [Mass/Vol]45 mg/yMOyr40-961DuqvukFostoria City Hospital Comment on above:Performed By: #### 3648330 #### [facility] [address], [place] [address]Korldczhj [Moles/Vol]3.9 mmol/LNormal3.5-5.3FOhio State East HospitalComment on above:Performed By: #### 9674926 #### [facility] [address], [place] [address]Pszgja [Moles/Vol]138 mmol/KQscdnk826-458QvzuehFostoria City HospitalComment on above:Performed By: #### 8801209 #### [facility] [address], [place] [address]Lttl nitrogen [Mass/Vol]12 mg/dLNormal5-21[facility] City HospitalComment on above:Performed By: #### 4080531 #### [facility] [address], [place] [address]Pljy nitrogen/Creatinine [Mass ratio]20 No WyztnIeorin88-78 [facility] HospitalComment on above:Performed By: #### [id number] #### [facility] [address], [place] [address]Jngabtfccj 20-97-1451Pojmupci [Mass/Vol]2 ng/bLQcf20-514CfniqqFostoria City HospitalComment on above:Performed By: #### 7942881 #### [facility] [address], [place] [address]Jfntfi 77-56-4451Stxo [Mass/Vol]17 microgram/uJCla94-571MhspfxFostoria City HospitalComment on above:Performed By: #### 2077299 #### [facility] [address], [place] [address]Oakd Saturationon 60-15-5136Vrfp binding capacity [Mass/Vol]561 microgram/aCYqmu463-270JwthzyFostoria City HospitalComment on above:Performed By: #### 3782028 #### [facility] [address], [place] [address]Rxns saturation [Mass fraction]3 %Eqm08-28YvhsfkFostoria City HospitalComment on above:Performed By: #### [id number] #### [facility] [address], [place] [address]Njlcocdjwtjfx 36-05-3336Ktxfipswrxs [Mass/Vol]401 mg/dLHigh 200-370F[facility] City HospitalComment on above:Performed By: #### 9523181 #### [facility] [address], [place] [address]aBCEjh 59-07-1571wVDT179 mL/min/1.73 g6Uqvxnu>=59F[facility] City HospitalComment on above:Order Comment: Order added by Discern Expert. Performed By: #### [id number] #### [facility] [address], [place] [address]Whxxzykbo Correspondenceon 32-22-6462Mqpdsrxac Correspondence [id number]#1.00TIFFBlanchard Valley Health System Bl[facility] Valley HospitalInsurance Correspondenceon 60-22-9140Dsppzupwu Correspondence [id number]#1.00TIFFNoWadsworth-Rittman HospitalConsent for Treatmenton 78-43-2679Dcwpsxw for Treatment [id number]#1.00[facility] HospitalPhysician Orderon 95-21-0850Waxjaawuh Order [id number]#1.00[facility] HospitalVitamin D 25 Hydroxyon 444553-ltoqugpzkesjip D3 [Mass/Vol]40.5 ng/mL Ojcbyw07.0-100.0[facility] City HospitalComment on above:Performed By: #### [id number] #### [facility] [address] [place], [place] [address]BMB - Otheron 00-53-4703KIZ - Other [id number]#1.00[facility] HospitalInsurance Correspondenceon 38-63-2400Xsylaqplb Correspondence [id number]#1.00[facility] HospitalConsenton 44-16-7734Awewlnw [id number]#1.00[facility] HospitalConsent for Treatmenton 12-21-9266Qdysxnt for Treatment [id number]#1.00[facility] HospitalOncology Progress Noteon 16-15-1205Jiansnsy Progress NoteChief Complaint New patient here for anemia, no questions or concerns. Diagnoses 1. Iron deficiency anemia following bariatric surgery (K95.89: Other complications of other bariatric procedure) 2. Intestinal malabsorption (K90.9: Intestinal malabsorption, unspecified) Other iron deficiency anemias (D50.8: Other iron deficiency anemias) Oncological History/ROS/PE/Assessment and Plan Shira is a 57yr old female with a history of bowel obstruction, cervical dysplasia, and iron deficiency anemia. Surgical history includes cholecystectomy, D&C, and gastric bypass. Medications include acetaminophen and vitamin D3. She denies any personal history of cancer. Family cancer history i ncludes her father with stomach cancer as well as her mother with stomach cancer. She is referred by Dr. Andrade for iron deficiency anemia. Recent labs reveal hemoglobin 8.4 with low MCV and MCH. Wbc count is also slightly low. Platelets WNL. Iron low at 22, ferritin only 2 and TIBC high at 637. Initial Exam 10/29/23: she doesn't have any energy, is just extremely tired denies shortness of breath or chest pain denies dizziness no n/v/d. Sometimes will have constipation denies black, tarry stool or other s/s of bleeding she had really heavy menses when she was premenopausal. Cycles stopped about 10yrs ago. she used to take oral iron without any improvement in her counts and with significant constipation no neuropathies is cold a lot. Also has ice cravings gets severe muscle cramps and restless legs denies fevers, chills, night sweats or unintentional weight loss no pain anywhere no headaches, vision changes or confusion Physical Exam General: Alert and oriented, No acute distress. Eye: Normal conjunctiva. HENT: Normocephalic, Normal hearing. Respiratory: Lungs are CTA, Respirations are non-labored, Symmetrical chest wall expansion Cardiovascular: Normal rate and rhythm. No murmurs noted. No edema Gastrointestinal: Soft, Non-tender, Normal bowel sounds, no guarding, no tenderness. Neurologic: Alert, Oriented, Normal sensory, Cranial Nerves II-XII are grossly intact. Psychiatric: Cooperative, Appropriate mood & affect. Integumentary: Warm, Dry, No rash. Impression and Plan Iron deficiency anemia s/p gastric bypass Had a colonoscopy maybe 5 years ago in [place]. Does not believe there was any findings. No previousEGD She is intolerant to oral iron given constipation. Previously tried and failed this She is very symptomatic and significantly anemic due to her iron deficiency. She will require IV iron repletion to prevent worsening symptoms and counts, which could lead to need for transfusions and/or hospitalization depending on severity. We will repeat labs with follow-up in 8wks to assess response to therapy. If she remains anemic with resolution of her iron deficiency at that time, we will plan appropriate further work-up. Follow-up With When Contact Information Manpreet RUBI, Martha Brooks, ONC [facility] [place] [address]- [phone] Additional Instructions: IV iron cbc, cmp, iron studies in 8wks follow-up in 8wks with [facility] Medications D3-50 oral capsule Tylenol with Codeine #3 oral tablet, 2 tab(s), Oral, q4hr, PRN Vital Signs and Measurements Vital Signs and Measurements This Visit - Last 24 Hours T: 36.9 ?C (Oral) HR: 84 (Peripheral) RR: 18 BP: 91/62 SpO2: 99% HT: 152.0 cm HT: 152 cm WT: 61.7 kg (Dosing) WT: 61.7 kg BMI: 26.71 BSA: 1.61 Staging Information No information available Labs Common Labs Event Name Event Result Date/Time WBC 3.4 E9/L Low 09/06/23 RBC 4.4 E12/L 09/06/23 HGB 8.4 gm/dL Low 10/06/23 HGB 8.3 gm/dL Low 09/06/23 Hct 28.7 % Low 10/06/23 Hct 28.4 % Low 09/06/23 MCV 63.9 fL Low 09/06/23 MCH 18.8 pg Low 09/06/23 MCHC 29.4 gm/dL Low 09/06/23 RDW 17.3 % High 09/06/23 Platelet 248 E9/L 09/06/23 MPV 8.6 fL 09/06/23 Path Review Path Review 09/06/23 Glucose Lvl 81 mg/dL 09/06/23 BUN 12 mg/dL 09/06/23 Creatinine 0.6 mg/dL 09/06/23 Potassium Lvl 3.8 mmol/L 09/06/23 Chloride 105 mmol/L 09/06/23 CO2 27 mmol/L 09/06/23 Calcium Lvl 9.6 mg/dL 09/06/23 Total Protein 7.1 gm/dL 09/06/23 Albumin Lvl 4.3 gm/dL 09/06/23 Bili Total 0.5 mg/dL 09/06/23 Iron 22 mcg/dL Low 10/06/23 Transferrin 455 mg/dL High 10/06/23 Ferritin Lvl 2 ng/mL Low 10/06/23 Hematologic Labs Event Name Event Result Date/Time Alk Phos 118 Int._Unit/L High 09/06/23 ALT 13 Int._Unit/L 09/06/23 AST 19 Int._Unit/L 09/06/23 Total Protein 7.1 gm/dL 09/06/23 Albumin Lvl 4.3 gm/dL 09/06/23 Globulin 2.8 gm/dL 09/06/23 A/G Ratio 1.5 09/06/23 Bili Total 0.5 mg/dL 09/06/23[facility] HospitalOutside Labson 32-00-7479Gfnkfxn Labs [id number]#1.00[facility] HospitalOutside [id number]#1.00[facility] HospitalOutside Progress Noteon 33-61-7216Owjtkls Progress Note [id number]#1.00[facility] HospitalReferrals Officeon 48-63-6042Kqjyaipxe Office [id number]#1.00[facility] HospitalConsent for Treatmenton 64-55-1314Yvwgqfg for Treatment [id number]#1.00[facility] HospitalFerritinon 83-16-1399Gulladcn [Mass/Vol]2 ng/oXKhd64-518XlhcbzFostoria City HospitalComment on above:Performed By: #### 37712783, 2786344, 50664333, 6976119 ####[facility] [address] [place], [place] [address]Jxe & Hgbon 10-20-8345Jbixfgkuou (Bld) [Volume fraction]28.7 %Low34.0-46.0 [facility] HospitalComment on above:Performed By: #### 99328430, 9534461, 05559943, 1742170 ####[facility] [address] [place], [place] [address]Ksbltolivy (Bld) [Mass/Vol]8.4 g/dLLow12.0-16.0 [facility] City HospitalComment on above:Performed By: #### 53572399, 3499319, 16614747, 2803567 ####[facility] [address] [place], [place] [address]Xzcodv 30-86-2075Vzqq [Mass/Vol]22 microgram/dLLow 35-153F[facility] City HospitalComment on above:Performed By: #### 60123205, 8098864, 80468873, 8495361 ####[facility] [address] [place], [place] [address]Abvbrvpes Orderon 58-17-2043Bwklxltow Order [id number]#1.00TIFFNormalFostoria City HospitalTIBC Calculatedon 85-89-1020Iaky binding capacity [Mass/Vol]637 microgram/pQYghd084-703YlbkyxFostoria City HospitalComment on above:Performed By: #### 78279951, 0975108, 28202406, 6262022 ####[facility] [address] [place], [place] [address]Bvaswvpatkl [Mass/Vol]455 mg/dLHigh 200-370F[facility] City HospitalComment on above:Performed By: #### 70418163, 7664952, 52058454, 6317475 ####[facility] [address] [place], [place] [address]QZ Mamm Screen w/CAD if perf and 3D Bilon 88-83-4648KT Mamm Screen w/CAD if perf and 3D BilExam Date/Time: 09/06/2023 14:24 EDT Reason for Exam: Z12.31 Report IMPRESSION: BIRADS 1 NEGATIVE, NORMAL INTERVAL FOLLOW-UP Follow-up: 12 MONTH RECALL Density: Scattered tissue. Vascular calcifications: Absent. EXAM: MA Mamm Screen w/CAD if perf and 3D Toney DATE: 09/06/2023 2:03 PM CLINICAL HISTORY: Z12.31. COMPARISONS: 05/09/2022, 08/21/2020, and 05/23/2019. TECHNIQUE: Routine full-field digital mammograms and 3D breast tomosynthesis of both breasts were obtained. FINDINGS: There are no developing masses, suspicious microcalcifications, or areas of architectural distortion identified on the current study. No significant changes are identified from the prior studies, given differences in technique and positioning. Dense Breast: No. CAD analysis was performed and used in the interpretation. Board Certified Radiologists. Accredited by the ACR and FDA. MAMMOGRAPHY IS VERY IMPORTANT TO YOUR HEALTH. THE CURRENT [employer] GUIDELINES RECOMMENDS ANNUAL MAMMOGRAPHY BEGINNING AT AGE 40. THIS FACILITY UTILIZES A REMINDER SYSTEM TO ENSURE ALL PATIENTS RECEIVE REMINDER NOTIFICATIONS AT THE APPROPRIATE TIME BASED ON THE RECOMMENDATIONS OF THIS EXAM. Report Ordering Provider: Alonso Andrade FINAL REPORT Dictated: 09/08/2023 11:56 am Js Grayson MD Signed (Electronic Signature): 09/08/2023 11:56 am Signed by: Js Grayson MD Transcribed by: GERALDO Technologist: [facility] Assessment: BI-RADS Category 1-Negative Recommendation: Normal interval follow-upNormalFostoria City HospitalPath. Reviewon 34-14-1362Lafg ReviewAnemia with anisocytosis, microcytes and mild polychromasia.Invalid Interpretation [facility] HospitalComment on above:Order Comment: Order added by Discern ExpertPerformed By: #### [id number], 56908624, 6962350, 18975614, 4167646, 3719402, 1806167 ####[facility] [address] [place], [place] [address]IFD w/Indiceson 09-06-2023 Anisocytosis Ql (Bld)PRESENTInvalid Interpretation [facility] HospitalComment on above:Performed By: #### [id number], 94969614, 5885926, 48655556, 8511432, 2242618, 5318296 ####[facility] [address] [place], [place] [address]Wcvbizeriew distribution width (RBC) [Ratio]17.3 %High10.9-14.2[facility] HospitalComment on above:Performed By: #### 052770349, 30394040, 6411723, 24084001, 4916960, 9712180, 3369361 ####[address] [place] [address] Hematocrit (Bld) [Volume fraction]28.4 %Low34.0-46.0[facility] Comment on above:Performed By: #### 025523151, 90754838, 6952869, 19001755, 0020497, 9782477, 9725591 ####[address] [place], [place] [address]Anbpubbain (Bld) [Mass/Vol]8.3 g/dLLow12.0-16.0[facility] HospitalComment on above:Performed By: #### 168869661, 46797821, 5955497, 98021183, 7347680, 3943021, 3099549 ####[address] [address]Oflmouvakbp Auto Ql (Bld)PRESENT Invalid Interpretation CodeFostoria City HospitalComment on above:Performed By: #### 437849896, 56945497, 7639583, 18523245, 8771529, 1492619, 1215517 ####[address] [place], [place] [address]JIC (RBC) [Entitic mass]18.8 pgLow27.0-34.0[facility] HospitalComment on above:Performed By: #### 562868724, 86499712, 0426276, 11504377, 7523146, 8031540, 8851820 ####[address] [address]TYOD (RBC) [Mass/Vol]29.4 g/dLLow31.4-36.0[facility] HospitalComment on above:Performed By: #### 401304345, 99147234, 3181971, 07325418, 8631893, 5217981, 6390413 ####[address] [address]FFI (RBC) [Entitic vol]63.9 fLLow 80.0-100.0[facility] HospitalComment on above:Performed By: #### 841158984, 09717100, 6852747, 88413824, 8711918, 0083770, 0622691 ####[address] [address]Elcotrwm mean volume (Bld) [Entitic vol]8.6 fLNormal6.4-10.8[facility] HospitalComment on above:Performed By: #### 838805164, 76095267, 5074277, 96338953, 6543707, 3065810, 1199165 ####[address] [address]Umfwouuaj (Bld) [#/Vol]248.0 E9/MBjjfhq831.0-500.0[facility] HospitalComment on above:Performed By: #### 016319338, 92297373, 8495102, 01611829, 4339064, 8216003, 0642637 ####[address] [address]LFH (Bld) [#/Vol]4.4 E12/LNormal 4.3-5.9[facility] HospitalComment on above:Performed By: #### 016472713, 38362008, 7120242, 58921742, 8803742, 9197045, 4540144 ####[address] [address]IRD size Nom (Bld)NORMAL Invalid Interpretation CodeFostoria City HospitalComment on above:Performed By: #### 540827977, 27802345, 7241440, 25011665, 8554806, 9408501, 5295481 ####[address] [address]WGL corrected for nucl RBC Auto (Bld) [#/Vol]3.4 E9/LLow4.0-11.0[facility] HospitalComment on above:Performed By: #### 204277835, 20319313, 2746289, 11275565, 8401382, 0818511, 3043073 ####[facility] [address] [place], [place] [address]HHZwa 17-22-5541Itqxxbb [Mass/Vol]4.3 g/dLNormal3.3-5.0[facility] HospitalComment on above:Performed By: #### 050618357, 17461014, 5101135, 15879765, 7379150, 1479520, 9388257 ####[address] [place], [place] [address]Pbmzghv/Globulin (S) [Mass conc ratio]1.9Mjqqou8.1-2.2FOhio State East HospitalComment on above:Performed By: #### 073017969, 12231552, 0205233, 45947087, 2745389, 8709995, 2581340 ####[address] [address]EQW [Catalytic activity/Vol]118 Int._Unit/DLxjc46-49PygtrdFostoria City HospitalComment on above:Performed By: #### 384459876, 54844505, 7164553, 71665127, 8415406, 3928961, 3627602 ####[address] [address]VNF No additional P-5'-P [Catalytic activity/Vol]13 Int._Unit/LNormal6-46[facility] HospitalComment on above:Performed By: #### 760687353, 37936169, 4868887, 74818655, 9650001, 6102996, 7111156 ####[address] [address]Sbsaj gap [Moles/Vol]11 mmol/LNormal6-16[facility] HospitalComment on above:Performed By: #### 645436485, 81803101, 7550364, 52882317, 2565477, 1865086, 1076599 ####[facility] [address] [place], [place] [address]XBR [Catalytic activity/Vol]19 Int._Unit/LNormal5-43[facility] HospitalComment on above:Performed By: #### 288183051, 75850091, 5423664, 38663961, 5617938, 1556051, 9893185 ####[facility] [address] [place] [address] Bilirubin [Mass/Vol]0.5 mg/dLNormal0.0-1.1FOhio State East HospitalComment on above:Performed By: #### 964086460, 31129133, 6855403, 07081545, 7259729, 9114936, 4390513 ####[address] [address]Cjsmabj [Mass/Vol]9.6 mg/dLNormal8.9-11.1FOhio State East HospitalComment on above:Performed By: #### 328646260, 55794177, 2410664, 18448907, 9353628, 7779901, 3623870 ####[address] [place], [place] [address]Tbbbulkf [Moles/Vol]105 mmol/LNormal 101-111F[facility] HospitalComment on above:Performed By: #### 516994521, 33255659, 7960015, 32814622, 0698093, 8892763, 7113126 ####[address] [place], [place] [address]QX6 [Moles/Vol]27 mmol/L Zdpxlj33-52VjiaksFostoria City HospitalComment on above:Performed By: #### 875853678, 42893727, 5905149, 52018584, 6017474, 9319966, 9710692 ####[facility] [address] [place], [place] [address]Fmdhwiostq [Mass/Vol]0.6 mg/dLNormal0.5-1.3FOhio State East HospitalComment on above: Performed By: #### 806806440, 63651913, 1257040, 94920451, 2744981, 1197933, 7391398 ####[facility] [address] [place], [place] [address]Sxpxkfja (S) [Mass/Vol]2.8 g/dLNormal1.4-4.0[facility] Comment on above:Performed By: #### 939703902, 43192032, 9876507, 68144654, 0526268, 5660178, 6217546 ####[facility] [address] [place], [place] [address]Bzpdpqo [Mass/Vol]81 mg/cHIkvige09-552QzwldwFostoria City HospitalComment on above:Performed By: #### 150312773, 74908367, 7535064, 37100902, 4431585, 3807431, 4044077 ####[facility] [address] [place] [address]Qpsfynmoy [Moles/Vol]3.8 mmol/LNormal 3.5-5.3FOhio State East HospitalComment on above:Performed By: #### 496019266, 65922578, 4077348, 68962618, 0628258, 1823330, 4720845 ####[facility] [address] [place], [place] [address]Rrualha [Mass/Vol]7.1 g/dL Normal6.0-7.8[facility] HospitalComment on above:Performed By: #### 739099827, 12399064, 9911720, 45313293, 3927464, 6153459, 8944190 ####[facility] [address] [place], [place] [address]Dfzaff [Moles/Vol]139 mmol/GSboxrv671-957CbsklqFostoria City HospitalComment on above: Performed By: #### 086516752, 69169502, 8791445, 32733369, 6375411, 5188243, 7256555 ####[facility] [address] [place], [place] [address]Nmhb nitrogen [Mass/Vol]12 mg/dLNormal5-21[facility] Comment on above:Performed By: #### 262060857, 74246537, 6674125, 57119133, 4019986, 5094771, 7144937 ####[facility] [address] [place], [place] [address]Sikt nitrogen/Creatinine [Mass ratio]20 No SpkuzDifkcp35-07 [facility] HospitalComment on above:Performed By: #### 800543713, 64988366, 3180500, 82043900, 5312737, 4138601, 6046115 ####[facility] [address] [place], [place] [address]Ykwzyst for Treatmenton 30-06-1472Vunzray for [id number]#1.00TIFF NormalFostoria City HospitalLipid Panelon 96-58-9875Bqgrygebuhx [Mass/Vol] 193 mg/vYXqyvau730-370EynvzmFostoria City HospitalComment on above:Performed By: #### 204161087, 93276728, 3393310, 40757530, 5650716, 8358495, 2409236 ####[facility] [address] [place] [address] Cholesterol in HDL [Mass/Vol]90 mg/dLInvalid Interpretation CodeFostoria City HospitalComment on above:Result Comment: '>= 60 LOW RISK' '<= 40 HIGH RISK'Performed By: #### [id number], [id number], [id number], [id number], [id number], 8293473, 2953883 ####[facility] [address] [place], [place] [address]Quwzewmmfug in LDL [Mass/Vol]92 mg/dLNormal<=129[facility] HospitalComment on above:Performed By: #### [id number], [id number], [id number], [id number], 3368376, 2013075, [id number] ####[facility] [address] [place], [place] [address]Ionaaojhfqz in VLDL [Mass/Vol]14 mg/dLNormal7-40[facility] HospitalComment on above:Performed By: #### [id number], [id number], [id number], [id number], 6887584, 2980056, 2044378 ####[facility] [address] [place], [place] [address]Zidihatlzbfy [Mass/Vol]71 mg/dLNormal<=149[facility] HospitalComment on above: Performed By: #### [id number], [id number], 0928736, [id number], 1487459, 8209751, 2352456 ####[facility] [address] [place], [place] [address]GON 706365ac 04-24-9933Rwqkpvde report Cyto stain Doc (Cvx/Vag)NoteInvalid Interpretation [facility] HospitalComment on above:Result Comment: TESTS RESULT FLAG UNITS REF RANGE LAB Clinician Provided Cytology Information Source.............Endocervix No. of containers..01 ThinPrep Vial DIAGNOSIS: 01 NEGATIVE FOR INTRAEPITHELIAL LESION OR MALIGNANCY. Specimen adequacy: 01 Satisfactory for evaluation. Endocervical and/or squamous metaplastic cells (endocervical component) are present. Performed by: Oskar Godoy Gas Utility Worker (ASC) . 01 Note: Note 01 The Pap smear is a screening test designed to aid in the detection of premalignant and malignant conditions of the uterine cervix. It is not a diagnostic procedure and should not be used as the sole means of detecting cervical cancer. Both false-positive and false-negative reports do occur. Test Methodology: Note 01 This liquid based ThinPrep(R) pap test was screened with the use of an image guided system. FLAG LEGEND: L-Low Normal,H-High Normal,LL-Alert Low,HH-Alert High <-Panic Low,>-Panic High,A-Abnormal,AA-Critical Abnormal Performed at: [address] [address] Radha Palmer MD, Evpapdmgp By: #### [id number] ####[place] [address] [place] [id number] 16+18+31+33+35+39+45+51+52+56+58+59+66+68 DNA Probe+sig amp Ql (Cvx)Negative Invalid Interpretation CodeNegativeFisher Holy Cross HospitalComment on above: Result Comment: This nucleic acid amplification test detects fourteen high-risk HPV types (16,18,31,33,35,39,45,51,52,56,58,59,66,68) without differentiation. Performed at: [address] [id number] MD Spencer Garcia Performed at: =[address] [id number] MD Spencer GarciaPerformed By: #### [id number] ####[place] [address] [place] Bautista [id number] Orderon 77-14-8905Wbirojrmd [id number]#1.00TIFF NormalFostoria City HospitalTSHon 85-12-5859AAR Qn1.75 m[IU]/LNormal 0.34-5.60[facility] HospitalComment on above:Performed By: #### [id number], [id number], [id number], 30806093, 6820440, 1656540, 4466194 ####[place] [place], [place] [address]Vqcadqx D 25 Hydroxyon 43-74-274697479952-lzzgccsqbteoxx D3 [Mass/Vol]ng/mLLow30.0-100.0[facility] HospitalComment on above:Performed By: #### [id number], [id number], 5087172, 44990453, 7765792, 9076169, 3377288 ####[address] [address]pEMHkp 14-64-2625eLOS376 mL/min/1.73 g4Ecsksc>=59F[facility] City HospitalComment on above:Order Comment: Order added by Discern Expert.Performed By: #### [id number], [id number], [id number], 45340359, 9802005, 6429451, 7337470 ####[place] [address] [place], [place] [address]JZS 790279bw 38-97-8197Tuiyjtcein TechniqueBRUSH-SPATULANormMercy Memorial HospitalComment on above: Performed By: #### [id number] ####[address]Gynecological Body SiteENDOCERVIXNoWadsworth-Rittman HospitalComment on above:Performed By: #### [id number] ####[place] [address]Physician Orderon 29-84-8019Joelgifxp [id number]#1.00TIFF NormalFisher Holy Cross HospitalPhysician Order [id number]#1.00TIFFNormalFisher Holy Cross HospitalCovid-19 PCR ([facility])on 51-86-2831LNKO-CoV-2 (COVID-19) RNA JOIE+probe Ql (Unsp spec)Not detectedNormalNOT DETECTEDThe [facility] CenterComment on above: Result Comment: This test is not yet approved or cleared by the [place] FDA. When there are no FDA-approved or cleared tests available, and other criteria are met, FDA can make tests available under an emergency access mechanism called an Emergency Use Authorization (EUA). The EUA for this test is supported by the Senior Fire Protection Engineer of Health and Human Service's (HHS's) declaration that circumstances exist to justify the emergency use of in vitro diagnostics for the detection and/or diagnosis of the virus that causes COVID-19. This EUA will remain in effect (meaning this test can be used) for the duration of the COVID-19 declaration justifying emergency of IVDs, unless it is terminated or revoked by FDA (after which the test may no longer be used). When diagnostic testing is negative, the possibility of a false negative should be considered in the context of a patient's recent exposures and the presence of clinical signs and symptoms consistent with SARS-CoV-2.Performed By: #### CVDTB #### [facility] [address] [place] [address] Dr. Darrius Horton Vital Signs Date TimeVital SignValuePerforming HgzqcisnbYmwrpznh58-62-6660 15:49-0400Body ytwnjb477.86 cmBenjaAdCare Health Systems Ball DO Work Phone: [facility]10-20-2025 15:49-0400 Body mass index (BMI) [Ratio]29.7 kg/b0Qffyqvhh Ball DO Work Phone: [facility]10-20-2025 15:49-0400 Body .9 kgBenjamin Ball DO Work Phone: [facility]10-20-2025 15:49-0400 Diastolic blood mm[Hg]Ryan Ball DO Work Phone: [facility]10-20-2025 15:49-0400 Heart rate76 /minBenjamin Ball DO Work Phone: [facility]10-20-2025 15:49-0400 Respiratory rate12 /minBenjamin Ball DO Work Phone: [facility]10-20-2025 15:49-0400 Systolic blood mm[Hg]Ryan Ball DO Work Phone: [facility]02-19-2025 10:36-0500 Body .86 cmMercy Health [facility] Hospital02-19-2025 10:36-0500Body mass index (BMI) [Ratio]28.3 kg/n6NqivkcqmmMercy Health Clermont Hospital02-19-2025 10:36-0500Body ehhwsrynzjw905.4 [degF][facility] 07-30-2024 10:36-0500Body aafdlb16.5 kgMercy Health Clermont Hospital 07-30-2024 10:36-0500Diastolic blood zjsfihmp16 mm[Hg][facility]02-19-2025 10:36-0500Heart nudg199 /[facility] 07-30-2024 10:36-0500Respiratory rate16 /[facility] 07-30-2024 10:36-5400YrS3% (BldA) [Mass fraction]95 %[facility]02-19-2025 10:36-0500Systolic blood mm[Hg][facility]01-19-2025 10:41-0500Body jxunbv452.86 cmMercy Health Clermont Hospital01-19-2025 10:41-0500Body mass index (BMI) [Ratio]28 kg/m2 [facility]01-19-2025 10:41-0500Body haejswndmow96.1 [degF][facility]01-19-2025 10:41-0500Body .04 kg [facility]01-19-2025 10:41-0500Diastolic blood xtkcdoaz72 mm[Hg][facility]01-19-2025 10:41-0500Heart rate89 /min [facility]01-19-2025 10:41-0500Respiratory rate16 /min [facility]01-19-2025 10:41-1497StF4% (BldA) [Mass fraction]96 %[facility]01-19-2025 10:41-0500Systolic blood ooicsoqm928 mm[Hg][facility]09-04-2024 13:34-0400 Body drufrh610.86 cmMercy Health [facility] Hospital09-04-2024 13:34-0400Body mass index (BMI) [Ratio]27.4 kg/y1SxzdqkuzvMercy Health Clermont Hospital09-04-2024 13:34-0400Body wiuany08.68 kgMercy Health Clermont Hospital09-04-2024 13:34-0400Diastolic blood zzgyanif78 mm[Hg][facility] 02-13-2024 13:34-0400Heart rate97 /minMercy Health Clermont Hospital 02-13-2024 13:34-6914UfG3% (BldA) [Mass fraction]98 %[facility]09-04-2024 13:34-0400Systolic blood iiwmelyc436 mm[Hg][facility] Encounters Encounter DateEncounter Type[facility] ProviderFacilityStart: 03-30-2025 End: 73-64-5462mpfzqljpzuPhacxztm Ball DO [facility] Phone: [facility]Start: 03-30[facility]2025 End: 15-45-4024Xsrkeon encounter procedureBenjamin Ball DO-[facility] Work Phone: Start: 03-20-2025 End: 38-45-2174pbhuwlbkkyFzbAzul JohnFacility:FTMCStart: 03-12-2025 End: 89-94-5422sifyywkzjxQih Yaser Al-MarrawiFacility:FTMCStart: 02-26-2025 End: 21-83-2217oadubvvdjfUyr Yaser Al-MarrawiFacility:FTMCStart: 02-24-2025 End: 33-84-3925ufikwrjbfdTyc Yaser Al-MarrawiFacility:FTMCStart: 02-20-2025 End: 47-23-7943cjedyzynfwGpv Yaser Al-MarrawiFacility:FTMCStart: 02-19-2025 End: 45-44-5920eomygrxwdfFnt Yaser Al-MarrawiFacility:FTMCStart: 02-18-2025 End: 73-96-5432wsmibjztgjCvr Yaser Al-MarrawiFacility:FTMCStart: 02-17-2025 End: 98-61-1276qpzcdqqrmdInu Yaser Al-MarrawiFacility:FTMCStart: 02-14-2025 End: 54-79-3770lrqptokdewUtm Yaser Al-MarrawiFacility:FTMCStart: 08-12-2024 End: 24-00-0022iumniuijkaOyf Yaser Al-MarrawiFacility:FTMCStart: 08-09-2024 End: 41-84-5368xcujdyoyplTrg Yaser Al-MarrawiFacility:FTMCStart: 07-30-2024 End: 46-94-1638grzkqhgoppJdoyqwcfhOhioHealth Grove City [facility] Hospital Work Phone: Start: 07-30-2024 End: 25-85-3748Cbqqrmo encounter procedureFirriverside [facility] Work Phone: Start: 06-29-2024 End: 12-01-8335qwoesvwhaoMrafvuobsOhioHealth Grove City [facility] Hospital Work Phone: Start: 06-29-2024 End: 20-50-6095Tdquazl encounter procedureFirriverside tappahannock [facility] Work Phone: Start: 06-27-2024 End: 34-43-8414iwcjlyphvrWdqhmrmwhOhioHealth [facility] Work Phone: Start: 06-27-2024 End: 24-34-4187Bhodejp encounter procedureE[facility] Work Phone: Start: 04-21-2024 End: 99-53-2017sctosoxfxkLzmt Katie ManpreetFacility:FTMCStart: 04-17-2024 End: 32-95-6686avsuhxlcuzQxwh Cecilia ManpreetFacility:FTMCStart: 04-11-2024 End: 54-15-9991uzjckjkhbwCujusnoikOhioHealth [facility] Work Phone: Start: 04-11-2024 End: 54-43-9104Hzdzohq encounter procedureE[facility] Work Phone: Start: 02-22-2024 End: 74-72-4858qnxvxlgvqeJvrs Cecilia ManpreetFacility:FTMCStart: 02-13-2024 End: 47-52-1994ihmcdxnhajOvqyqbtipOhioHealth [facility] Work Phone: Start: 02-13-2024 End: 83-78-7812Qjlkikx encounter procedureEcu [facility] Work Phone: Start: 01-24-2024 End: 15-72-5324foitaaokweKNQZON-BC Martha Foxdamari CaseFacility:FTMCStart: 01-22-2024 End: 30-63-2998qfhnuugiglPTHMUK-BC Martha Foxdamari CaseFacility:FTMCStart: 11-12-2023 End: 21-34-6438yarpmnokwsVjabz Natali KastenFacility:FTMCStart: 81-81-8157bzwuuxisdg Alonso KastenFacility:FTMCStart: 10-29-2023 End: 28-01-3008mffoedlufcBikmo D KastenFacility:FTMCStart: 10-06-2023 End: 76-48-4541pwzhuvofoaBpwre D KastenFacility:FTMCStart: 09-06-2023 End: 41-03-9419kcetzrsjcbBirnc D KastenFacility:FTMCStart: 08-30-2023 End: 28-01-9564gzxfpsebfuHxffp D KastenFacility:MCStart: 05-21-2023 End: 67-48-3116ptwcbcxkbuYrcsuyvg Ball Other [employer] Other Start: 82-71-0669Gcwnbu outpatient visit 15 minutes [facility]Start: 04-10-2023 End: 68-61-4568btonysnkhgAulhzynn Ball Other [employer] Other Start: 86-08-8209Lhhsubegr encounterBenoah Olivas Medical ClinicStart: 10-13-2022 End: 89-48-7500evtcnxlsjgOzrdmbct Ball Other [employer] Other Start: 42-50-3885Xhktes outpatient visit 15 minutes [facility] ClinicStart: 07-18-2022 End: 29-00-4855zlqltuxntyDfjevbpo Ball Other [employer] Other Start: 59-37-6039Tdlkkr outpatient visit 15 minutes [facility] ClinicStart: 03-10-2021 End: 89-06-0086igmdkjwwtsPU RYAN OLIVASFacility:B4Gupqp: 12-01-2020 End: 25-99-1895fbffxuebytTG RYAN BALLFacility:H1 Plan of Treatment DateCare ActivityDetailAuthorXR Unspecified body region [facility] Immunizations Immunization DateImmunizationNotesCare GaydmvnkDkzhjwqk92-96-0007XZMRA-88 Vaccine Pfizer - Documentation Purposes OnlyBenoah Ball Other [facility]08-29-2019diphtheria, tetanus toxoids and acellular pertussis vaccine, unspecified formulation Ryan Olivas Other [facility]08-14-2013diphtheria, tetanus toxoids and acellular pertussis vaccine, unspecified formulation Ryan Olivas Other [facility] Payers DatePayer CategoryPayerPolicy [id number] 2.840.8.17926[id number] 2.840.1.648716.3.5[id number] 2.840.1.666521.3.57[id number] 2.840.1.844405.3.57[id number] 2.840.1.105880.3.579.[id number] 2.16840.1.096423.3.57[id number] 2.840.1.118028.3.579.2.[id number] 2.840.1.959665.3.57[id number] 2.16840.1.033755.3.57[id number] 2.840.1.802783.3.57[id number] 2.16.840.1.240777.3.579.2.43042-86-8992Udirjwo70589940 2.16.840.1.942764.3.57[id number] 2.16.840.1.713237.3.57[id number] 2.840.1.472687.3.579.2.[id number] 2.840.1.241518.3.579.[id number] 2.840.1.529424.3.579.2.[id number] 2.840.1.826758.3.579.2.[id number] 2.840.1.434380.3.579.2.1[id number] 2.840.1.253113.3.579.2.67226-40-8201Rxzsyfc10059561 2.840.1.199538.3.579.2.70745-03-5449Mbrlfez85853656 2.840.1.264641.3.579.2.32629-05-7986Gtmwpcg12879603 2.840.1.115594.3.579.2.[id number] 2.840.1.352776.3.579.2.19974-66-0968Cfaiaij77967586 2..840.1.990415.3.579.2.31778-51-6304Pbjjpzf11664076 2.16840.1.724877.3.579.2.31357-07-4086Vsqarle32864726 2..0.1.732390.3.579.2.28816-11-0494Keinbzx50431772 2..840.1.415754.3.579.2.21700-64-6338Ldoveou77674663 2.0.1.756082.3.579.2.67850-28-6068Lewkiyt46962970 2..0.1.534822.3.579.2.40935-38-6434LpjrrksKIQ116C42803EmamltePCZ649N83956 2.0.1.680557.19 Social History DateTypeDetailFacilitySex Assigned At [facility] [employer] Other Start: 63-18-1297Pfx Assigned At [facility] smoking [facility] NHISUnknown if ever smoked [facility] Work Phone: Start: 06-27-2024 End: 16-53-6147JyyObloek (finding)[facility] 06-[facility]-2024 End: 06-18-9739Urogtjw smoking status NHISNever smoked tobacco (finding) [facility] Clinical Notes 12-01-2020 to 02-17-2025 Note Date & VunfHxuwOkuttphd48-64-8949 NoteOncology Progress Note Chief Complaint Follow up on iron def anemia, no questions or concerns right now. pt would like lab results. Diagnoses 1. Iron deficiency anemia (D50.9: Iron deficiency anemia, unspecified) 2. Malabsorption of iron (K90.9: Intestinal malabsorption, unspecified) Oncological History/ROS/PE/Assessment and Plan HPI: Shira is a 57yr old female with a history of bowel obstruction, cervical dysplasia, and iron deficiency anemia. Surgical history includes cholecystectomy, D&C, and gastric bypass. Medications include acetaminophen and vitamin D3. She denies any personal history of cancer. Family cancer history i ncludes her father with stomach cancer as well as her mother with stomach cancer. She is referred by Dr. Andrade for iron deficiency anemia. Recent labs reveal hemoglobin 8.4 with low MCV and MCH. Wbc count is also slightly low. Platelets WNL. Iron low at 22, ferritin only 2 and TIBC high at 637. Initial Exam 10/29/23: she doesn't have any energy, is just extremely tired denies shortness of breath or chest pain denies dizziness no n/v/d. Sometimes will have constipation denies black, tarry stool or other s/s of bleeding she had really heavy menses when she was premenopausal. Cycles stopped about 10yrs ago. she used to take oral iron without any improvement in her counts and with significant constipation no neuropathies is cold a lot. Also has ice cravings gets severe muscle cramps and restless legs denies fevers, chills, night sweats or unintentional weight loss no pain anywhere no headaches, vision changes or confusion 01/24/24 still with the same symptoms, no changes she has taken the oral iron daily since last visit with no changes in her labs her insurance company will not pay for IV iron given it is a result of her previous gastric bypass.We are working on the best options for her [place] and will schedule once that has been figured out 04/21/24 PHONE visit energy is much improved since getting IV iron, she feels well, much better than she has in a long time denies shortness of breath or chest pain no longer with muscle cramps or restless legs is not craving ice any longer hemoglobin normalized, iron sat up to 18%, ferritin 47 08/12/24: She is here for 3 months follow up for CECELIA. She did not get bleeding from any sources. She takes not sure of what dose she takes every day and tolerating well without nausea vomiting epigastric pain or constipation. Labs on 08/09/2024 revealed normal hemoglobin 14.3 normal CBC with a WBC differential and RBC indices. The platelet is not 307 and MCV is 89.0 and WBC is normal. CMP is also totally normal including renal function calcium total protein and liver function test. Iron studies revealed iron is 78 with TIBC 384 normal and iron saturation 20% improved compared to before and ferritin is 46 which is withinnormal range better compared with January 2024. 02/17/25: Patient is here for 6 months FU for CECELIA and malabsorption of oral iron. - Labs On 02/14/2025 revealed mild leukopenia WBC 3.7 normal mild neutropenia with ANC of 1.9 otherwise normal hemoglobin hematocrit RBC with RBC indices and WBC differential and normal platelet count.Creatinine is normal 0.6 calcium is normal total protein is normal LFTs are normal. Total bili is normal. Iron level is 76 normal TIBC is high 451 the iron saturation is low 17% ferritin is low 16 and the B12 is low 121 and folate is normal over 22.3. Summary of the lab results iron deficiency and B12 deficiency with mild leukopenia and neutropenia.Neutropenia leukopenia could be related to her B12 deficiency and iron deficiency as well. Physical Exam General: No acute respiratory distress. Neurologic: Alert, Oriented Psychiatric: Cooperative, Appropriate mood Impression and Plan 1. Iron deficiency anemia s/p gastric bypass Had [place] colonoscopy maybe 5 years ago in [place]. Does not believe there was any findings. No previousEGD She is intolerant to oral iron given constipation. Attempted another type of oral iron but her counts did not respond to therapy Received IV Infed Feb 2024, did well with this Apr 2024 iron studies significantly improved with normal hemoglobin, iron saturation 18%, ferritin 47 August 09, 2024 CBC is normal hemoglobin normal iron studies normal. 02/17/25: Patient is here for 6 months FU for CECELIA and malabsorption of oral iron. - Labs On 02/14/2025 revealed mild leukopenia WBC 3.7 normal mild neutropenia with ANC of 1.9 otherwise normal hemoglobin hematocrit RBC with RBC indices and WBC differential and normal platelet count.Creatinine is normal 0.6 calcium is normal total protein is normal LFTs are normal. Total bili is normal. Iron level is 76 normal TIBC is high 451 the iron saturation is low 17% ferritin is low 16 and the B12 is low 121 and folate is normal over 22.3. Summary of the lab results iron deficiency and B12 deficiency with mild leukopenia and neutropenia.Neutropenia leukopenia could (more content not included)...[facility] HospitalComment on above:Result Comment: Electronically Signed By: Dora WALKER, Esteban Doyle\.br\Date and Time Signed: 02/17/25 15:14 [id number] NoteOncology Progress Note Chief Complaint anemia no concerns Diagnoses 1. Iron deficiency anemia (D50.9: Iron deficiency anemia, unspecified) 2. Malabsorption of iron (K90.9: Intestinal malabsorption, unspecified) Oncological History/ROS/PE/Assessment and Plan Diagnoses 1. Iron deficiency anemia (D50.9: Iron deficiency anemia, unspecified) 2. Intestinal malabsorption (K90.9: Intestinal malabsorption, unspecified) Oncological History/ROS/PE/Assessment and Plan Shira is a 57yr old female with a history of bowel obstruction, cervical dysplasia, and iron deficiency anemia. Surgical history includes cholecystectomy, D&C, and gastric bypass. Medications include acetaminophen and vitamin D3. She denies any personal history of cancer. Family cancer history i ncludes her father with stomach cancer as well as her mother with stomach cancer. She is referred by Dr. Andrade for iron deficiency anemia. Recent labs reveal hemoglobin 8.4 with low MCV and MCH. Wbc count is also slightly low. Platelets WNL. Iron low at 22, ferritin only 2 and TIBC high at 637. Initial Exam 10/29/23: she doesn't have any energy, is just extremely tired denies shortness of breath or chest pain denies dizziness no n/v/d. Sometimes will have constipation denies black, tarry stool or other s/s of bleeding she had really heavy menses when she was premenopausal. Cycles stopped about 10yrs ago. she used to take oral iron without any improvement in her counts and with significant constipation no neuropathies is cold a lot. Also has ice cravings gets severe muscle cramps and restless legs denies fevers, chills, night sweats or unintentional weight loss no pain anywhere no headaches, vision changes or confusion 01/24/24 still with the same symptoms, no changes she has taken the oral iron daily since last visit with no changes in her labs her insurance company will not pay for IV iron given it is a result of her previous gastric bypass.We are working on the best options for her [place] and will schedule once that has been figured out 04/21/24 PHONE visit energy is much improved since getting IV iron, she feels well, much better than she has in a long time denies shortness of breath or chest pain no longer with muscle cramps or restless legs is not craving ice any longer hemoglobin normalized, iron sat up to 18%, ferritin 47 08/12/24: She is here for 3 months follow up for CECELIA. She did not get bleeding from any sources. She takes not sure of what dose she takes every day and tolerating well without nausea vomiting epigastric pain or constipation. Labs on 08/09/2024 revealed normal hemoglobin 14.3 normal CBC with a WBC differential and RBC indices. The platelet is not 307 and MCV is 89.0 and WBC is normal. CMP is also totally normal including renal function calcium total protein and liver function test. Iron studies revealed iron is 78 with TIBC 384 normal and iron saturation 20% improved compared to before and ferritin is 46 which is withinnormal range better tcompared with January 2024. Physical Exam General: No acute respiratory distress. Neurologic: Alert, Oriented Psychiatric: Cooperative, Appropriate mood Impression and Plan Iron deficiency anemia s/p gastric bypass Had a colonoscopy maybe 5 years ago in [place]. Does not believe there was any findings. No previousEGD She is intolerant to oral iron given constipation. Attempted another type of oral iron but her counts did not respond to therapy Received IV Infed Feb 2024, did well with this Apr 2024 iron studies significantly improved with normal hemoglobin, iron saturation 18%, ferritin 47 August 09, 2024 CBC is normal hemoglobin normal iron studies normal. Plan: Continue observation with follow-up labs in 6 months including CBC, CMP iron studies B12 and folate. Follow-up No qualifying data available Medications Celebrate Iron + C, 1 tab(s), Chewed, Daily D3-50 oral capsule Tylenol with Codeine #3 oral tablet, 2 tab(s), Oral, q4hr, PRN Vital Signs and Measurements Vital Signs and Measurements This Visit - Last 24 Hours T: 36.7 ???C (Oral) HR: 96 (Peripheral) RR: 14 BP: 95/65 SpO2: 96% HT: 152.0 cm HT: 152 cm WT: 64.8 kg (Dosing) WT: 64.8 kg BMI: 28.05 BSA: 1.65 Staging Information No information available Labs Common Labs Event Name Event Result Date/Time WBC 4.2 E9/L 08/09/24 RBC 4.6 E12/L 08/09/24 HGB 14.3 gm/dL 08/09/24 Hct 41.2 % 08/09/24 MCV 89 fL 08/09/24 MCH 30.8 pg 08/09/24 MCHC 34.6 gm/dL 08/09/24 RDW 14.2 % 08/09/24 Platelet 307 E9/L 08/09/24 MPV 7.9 fL 08/09/24 Neutro Auto 55.1 % 08/09/24 Lymph Auto 30.6 % 08/09/24 Cataño Auto 11.3 % 08/09/24 Eos Auto 2.1 % 08/09/24 Basophil Auto 0.9 % 08/09/24 Neutro Absolute 2.3 E9/L 08/09/24 Lymph Absolute 1.3 E9/L 08/09/24 Cataño Absolute 0.5 E9/L 08/09/24 Eos Absolute 0.1 E9/L 08/09/24 Basophil Absolute 0 E9/L 08/09/24 Glucose Lvl (more content not included)...[facility]01-17-2025 Evaluation note* Diagnosis Onset Date Resolution Status Admit Date COVID acuteJanuary 2024 10:30amRib pain on left sideacuteJunuary 2024 10:30amBacterial conjunctivitis of both eyesacuteJanuary 2024 10:16am COVID-19acuteJanuary 2024 10:16amInfluenza AacuteFeuary 2024 10:06am [facility] Work Phone: 1(846) 956-577911-11-2024 NoteOncology Progress Note Diagnoses 1. Iron deficiency anemia (D50.9: Iron deficiency anemia, unspecified) 2. Intestinal malabsorption (K90.9: Intestinal malabsorption, unspecified) Oncological History/ROS/PE/Assessment and Plan Shira is a 57yr old female with a history of bowel obstruction, cervical dysplasia, and iron deficiency anemia. Surgical history includes cholecystectomy, D&C, and gastric bypass. Medications include acetaminophen and vitamin D3. She denies any personal history of cancer. Family cancer history i ncludes her father with stomach cancer as well as her mother with stomach cancer. She is referred by Dr. Andrade for iron deficiency anemia. Recent labs reveal hemoglobin 8.4 with low MCV and MCH. Wbc count is also slightly low. Platelets WNL. Iron low at 22, ferritin only 2 and TIBC high at 637. Initial Exam 10/29/23: she doesn't have any energy, is just extremely tired denies shortness of breath or chest pain denies dizziness no n/v/d. Sometimes will have constipation denies black, tarry stool or other s/s of bleeding she had really heavy menses when she was premenopausal. Cycles stopped about 10yrs ago. she used to take oral iron without any improvement in her counts and with significant constipation no neuropathies is cold a lot. Also has ice cravings gets severe muscle cramps and restless legs denies fevers, chills, night sweats or unintentional weight loss no pain anywhere no headaches, vision changes or confusion 01/24/24 still with the same symptoms, no changes she has taken the oral iron daily since last visit with no changes in her labs her insurance company will not pay for IV iron given it is a result of her previous gastric bypass.We are working on the best options for [place] and will schedule once that has been figured out 04/21/24 PHONE visit energy is much improved since getting IV iron, she feels well, much better than she has in a long time denies shortness of breath or chest pain no longer with muscle cramps or restless legs is not craving ice any longer hemoglobin normalized, iron sat up to 18%, ferritin 47 Physical Exam General: No acute respiratory distress. Neurologic: Alert, Oriented Psychiatric: Cooperative, Appropriate mood Impression and Plan Iron deficiency anemia s/p gastric bypass Had a colonoscopy maybe 5 years ago in [place]. Does not believe there was any findings. No previousEGD She is intolerant to oral iron given constipation. Attempted another type of oral iron but her counts did not respond to therapy Received IV Infed Feb 2024, did well with this Apr 2024 iron studies significantly improved with normal hemoglobin, iron saturation 18%, ferritin 47 *Her insurance will not approve IV iron as it is linked to her history of gastric bypass, which wasfor obesity. They do not cover any costs related to/resulting from obesity, so will not cover the IV iron. Follow-up With When Contact Information Manpreet TROTTER-ALISHA, Martha Brooks, ON[facility] [address] [place] [phone]- [phone] Additional Instructions: cbc, cmp, iron studies in 3mo follow-up in 3mo Medications Celebrate Iron + C, 1 tab(s), Chewed, Daily D3-50 oral capsule heparin lock flush 100 units/mL (DoT), 500 unit(s)= 5 mL, IV Push, REGIMEN As Directed, PRN heparin lock flush 100 units/mL (DoT), 500 unit(s)= 5 mL, IV Push, REGIMEN As Directed, PRN heparin lock flush 100 units/mL (DoT), 500 unit(s)= 5 mL, IV Push, REGIMEN As Directed, PRN iron sucrose (DoT) iron sucrose (DoT) iron sucrose (DoT) Sodium Chloride 0.9% Maintenance (DoT) 250 mL, 250 mL, IV Sodium Chloride 0.9% Maintenance (DoT) 250 mL, 250 mL, IV Sodium Chloride 0.9% Maintenance (DoT) 250 mL, 250 mL, IV Tylenol with Codeine #3 oral tablet, 2 tab(s), Oral, q4hr, PRN Staging Information No information available Labs Common Labs Event Name Event Result Date/Time WBC 5.1 E9/L 04/17/24 RBC 5.1 E12/L 04/17/24 HGB 13.6 gm/dL 04/17/24 Hct 40.6 % 04/17/24 MCV 80.5 fL 04/17/24 MCH 26.9 pg Low 04/17/24 MCHC 33.4 gm/dL 04/17/24 RDW 27.4 % High 04/17/24 Platelet 340 E9/L 04/17/24 MPV 7.2 fL 04/17/24 Neutro Auto 57.5 % 04/17/24 Lymph Auto 30.3 % 04/17/24 Cataño Auto 9.1 % 04/17/24 Eos Auto 2.2 % 04/17/24 Basophil Auto 0.9 % 04/17/24 Neutro Absolute 3 E9/L 04/17/24 Lymph Absolute 1.6 E9/L 04/17/24 Cataño Absolute 0.5 E9/L 04/17/24 Eos Absolute 0.1 E9/L 04/17/24 Basophil Absolute 0 E9/L 04/17/24 Glucose Lvl 89 mg/dL 04/17/24 BUN 16 mg/dL 04/17/24 Creatinine 0.6 mg/dL 04/17/24 Potassium Lvl 4.3 mmol/L 04/17/24 Chloride 103 mmol/L 04/17/24 CO2 29 mmol/L 04/17/24 Calcium Lvl 9.1 mg/dL 04/17/24 Total Protein 6.5 gm/dL 04/17/24 Albumin Lvl 3.9 gm/dL 04/17/24 Bili Total 0.2 mg/dL 04/17/24 Iron 63 mcg/dL 04/17/24 Transferr (more content not included)...[facility]11-11-2024 NoteOncology Progress Note Chief Complaint Iron Deficieny; taking iron supplement. Diagnoses 1. Iron deficiency anemia (D50.9: Iron deficiency anemia, unspecified) 2. Malabsorption (K90.9: Intestinal malabsorption, unspecified) Ordered: ONC Office Visit 30 [address]. Review Oncological History/ROS/PE/Assessment and Plan Shira is a 57yr old female with a history of bowel obstruction, cervical dysplasia, and iron deficiency anemia. Surgical history includes cholecystectomy, D&C, and gastric bypass. Medications include acetaminophen and vitamin D3. She denies any personal history of cancer. Family cancer history i ncludes her father with stomach cancer as well as her mother with stomach cancer. She is referred by Dr. Andrade for iron deficiency anemia. Recent labs reveal hemoglobin 8.4 with low MCV and MCH. Wbc count is also slightly low. Platelets WNL. Iron low at 22, ferritin only 2 and TIBC high at 637. Initial Exam 10/29/23: she doesn't have any energy, is just extremely tired denies shortness of breath or chest pain denies dizziness no n/v/d. Sometimes will have constipation denies black, tarry stool or other s/s of bleeding she had really heavy menses when she was premenopausal. Cycles stopped about 10yrs ago. she used to take oral iron without any improvement in her counts and with significant constipation no neuropathies is cold a lot. Also has ice cravings gets severe muscle cramps and restless legs denies fevers, chills, night sweats or unintentional weight loss no pain anywhere no headaches, vision changes or confusion 01/24/24 still with the same symptoms, no changes she has taken the oral iron daily since last visit with no changes in her labs her insurance company will not pay for IV iron given it is a result of her previous gastric bypass.We are working on the best options for her [place] and will schedule once that has been figured out Physical Exam General: No acute distress. Neurologic: Alert, Oriented, Normal sensory, Cranial Nerves II-XII are grossly intact. Psychiatric: Cooperative, Appropriate mood & affect. Impression and Plan Iron deficiency anemia s/p gastric bypass Had a colonoscopy maybe 5 years ago in [place]. Does not believe there was any findings. No previousEGD She is intolerant to oral iron given constipation. Previously tried and failed this She is very symptomatic and significantly anemic due to her iron deficiency. She will require IV iron repletion to prevent worsening symptoms and counts, which could lead to need for transfusions and/or hospitalization depending on severity. She attempted a different type of oral iron supplementation without any changes in her counts. Her insurance will not approve IV iron as it is linked to her history of gastric bypass, which was for obesity. They do not cover any costs related to/resulting from obesity, so will not cover the IV iron. We are working with her on other financial options to cover IV Infed. Follow-up With When Contact Information Manpreet RUBI, Martha Brooks, ON[facility] [address] [place] [phone] Additional Instructions: cbc, cmp, iron studies in 3mo follow-up in 3mo with [employer] IV Infed once financial issues handled Medications Celebrate Iron + C, 1 tab(s), Chewed, Daily D3-50 oral capsule heparin lock flush 100 units/mL (DoT), 500 unit(s)= 5 mL, IV Push, REGIMEN As Directed, PRN heparin lock flush 100 units/mL (DoT), 500 unit(s)= 5 mL, IV Push, REGIMEN As Directed, PRN heparin lock flush 100 units/mL (DoT), 500 unit(s)= 5 mL, IV Push, REGIMEN As Directed, PRN iron sucrose (DoT) iron sucrose (DoT) iron sucrose (DoT) Sodium Chloride 0.9% Maintenance (DoT) 250 mL, 250 mL, IV Sodium Chloride 0.9% Maintenance (DoT) 250 mL, 250 mL, IV Sodium Chloride 0.9% Maintenance (DoT) 250 mL, 250 mL, IV Tylenol with Codeine #3 oral tablet, 2 tab(s), Oral, q4hr, PRN Vital Signs and Measurements Vital Signs and Measurements This Visit - Last 24 Hours T: 36.6 ???C (Oral) HR: 79 (Peripheral) RR: 16 BP: 106/68 SpO2: 99% HT: 152 cm HT: 152.0 cm WT: 60.4 kg WT: 60.4 kg (Dosing) BMI: 26.14 BSA: 1.6 Staging Information No information available Labs Common Labs Event Name Event Result Date/Time WBC 3.4 E9/L Low 01/22/24 RBC 4.4 E12/L 01/22/24 HGB 8.6 gm/dL Low 01/22/24 Hct 28.7 % Low 01/22/24 MCV 65.7 fL Low 01/22/24 MCH 19.8 pg Low 01/22/24 MCHC 30.1 gm/dL Low 01/22/24 RDW 19.4 % High 01/22/24 Platelet 311 E9/L 01/22/24 MPV 8.2 fL 01/22/24 Neutro Auto 56.8 % 01/22/24 Lymph Auto 30.9 % 01/22/24 Cataño Auto 9.2 % 01/22/24 Eos Auto 2.1 % 01/22/24 Basophil Auto 1 % 01/22/24 Neutro Absolute 1.9 E9/L Low 01/22/24 Lymph Absolute 1.1 E9/L 01/22/24 Cataño Absolute 0.3 E9/L 01/22/24 Eos Absolute 0.1 E9/L 01/22/24 Basophil Absolute 0 E9/L 01/22/24 Path Review Path Re (more content not included)...[facility]11-01-2024 Evaluation note* Diagnosis Onset Date Resolution Status Admit Date Cough productive of clear sputum noneactiveNovember 2023 11:26amAcute bronchitis due to other specified organismsnoneactiveNovember 2023 11:26amCOVIDacuteJanuary 2024 10:30am [facility] Work Phone: [phone]) 536-779711-01-2024 Evaluation note* Diagnosis Onset Date Resolution Status Admit Date Cough productive of clear sputum noneactiveNovember 2023 11:26amAcute bronchitis due to other specified organismsnoneactiveNovember 2023 11:26amCOVIDacuteJanuary 2024 10:30amRib pain on left sideacuteJanuary 2024 10:30am [facility] [place] Work Phone: [phone]) [phone] NotePeripheral blood smear evaluation: [facility] HospitalComment on above:Performed By: #### [id number] #### [facility] [address] [place], [place] [id number] NotePath Review Peripheral blood smear evaluation: - Moderate microcytic hypochromic anemia with anisopoikilocytosis consistent with iron deficiency anemia. - Mild leukocytopenia. - Platelet: Normal count and normal morphology. CPT: 51255 Lc Mcdaniel MD 01/23/2024 11:42:34 [facility]* Encounter Date Diagnosis Assessment Notes Treatment Notes Treatment Clinical Notes May, Acute bronchitis due to other sp ecified organisms (ICD-10 - J20.8) Instructed to use Robitussin or Mucinex for cough, saline or Flonase NS for congestion, Tylenol forpain and fever. [employer] Other 05-05-2023 Evaluation note* Encounter Date Diagnosis Assessment Notes Treatment Notes Treatment Clinical Notes October, Diarrhea of presumed infectious origin (ICD-10 - R19.7) Diet instructions: hydrate w/ water, gatorade or pedialyte Avoid juices, milk or tomato based sauce. Increase bananas, yogurt and cheese October,bdominal cramping in left lower quadrant (ICD-10 - R10.32)Diet instructions, Levsin AC and HS October,ehydration (ICD-10 - E86.0)Push fluids, sips of water every 15 minutes. [employer] Other 02-07-2023 Evaluation note* Encounter Date Diagnosis Assessment Notes Treatment Notes Treatment Clinical Notes Jul, Dehydration (ICD-10 - E86.0) Push fluids, Pedialyte for electrolyte replacement Jul,Nausea (ICD-10 - R11.0)Diet instructions, zofran as needed. Jul,iarrhea of presumed infectious origin (ICD-10 - R19.7)Diet instructions, Levsin for frequency [employer] Other 06-23-2021 NotePROCEDURE: XR FOOT LT 2V COMPARISON: None. HISTORY: Contusion of left foot FINDINGS: BONES:No acute fracture or dislocation. Minimal degenerative changes with marginal osteophyte formation. Mild enthesopathic spurring of the calcaneus at the plantar aponeurosis insertion SOFT TISSUES:Negative. No visible soft tissue swelling. EFFUSION:None visible. OTHER: Negative. IMPRESSION: Minimal degenerative changes Electronically authenticated by: SUSI PRADO Date: 2020-12-01 12:52[facility] CenterEvaluation noteNo InformationNortHoly Redeemer Hospital [employer] Other Evaluation note* Diagnosis Onset Date Resolution Status Fall acuteRib pain on left sideacute [facility] Work Phone: Evaluation noteNo assessment information available [facility] Work Phone: History general Narrative - Reported* Type Description Date Medical History Contusion of foot or heel, left, initial encounter Medical HistoryCervical spondylosis with radiculopathyMedical HistoryLeft foot painMedical HistoryAcute right-sided low back pain without sciaticaSurgical [id number] HistoryD&[id number] HistorySEE SURGICAL HX [facility] [employer] Other Reason for referral (narrative)No reason for referral information availableSelect [facility] [place] Work Phone: Summary Purpose Family History Relationship Condition Age at Onset Recorded Date/T sergio father Unknown family memberDeceasedUnknownmotherDeceasedUnknown Advance Directives Advance Directive Response Recorded Date/ Time Advance Directives No February 1:30pm Advance Directive Response Recorded Date/ Time Advance Directives No April 10, 2024 1:57pm Advance Directive Response Recorded Date/ Time Advance Directives No April 10, 2024 12:57pm Chief Complaint and Reason for Visit Chief Complaint fall/chest pain Reason for Visit Fall Rib pain on left side Chief Complaint fall/chest pain [id number] cough, chills, headacheReason for VisitFall Rib pain on left side Chief Complaint Admit Date [id number] cough, chills, headache 2023 11:26am [id number] throat, fever, body aches June 27, 2024 10:30am Reason for Visit Admit Date Cough productive of clear sputum 2023 11:26am Acute bronchitis due to other specified organisms April 11, 2024 11:26am COVID June 27, 2024 1 0:30am Chief Complaint Admit Date [id number] cough, chills, headache 2023 11:26am [id number] throat, fever, body aches June 27, 2024 10:30am sinus , poss pink eye June 29, 2024 10:16am Reason for Visit Admit Date Cough productive of clear sputum 2023 11:26am Acute bronchitis due to other specified organisms April 11, 2024 11:26am COVID June 27, 2024 1 0:30am Rib pain on left side June 27, 2024 10:30am Chief Complaint Admit Date [id number] throat, fever, body aches June 27, 2024 10:30am sinus , poss pink eye June 29, 2024 10:16am Cough, fevers July 30, 2024 10:06am Reason for Visit Admit Date COVID June 27, 2024 1 0:30am Rib pain on left side June 27, 2024 10:30am Bacterial conjunctivitis of both eyes [facility] 2024 10:16am COVID-19 June 29, 2024 1 0:16am Influenza A July 30, 2024 10:06am Chief Complaint Admit Date Head & Mouth Pain from fall 3:35pm Additional Source Comments INFORMATION SOURCE (unrecogn ized section and content) DATE CREATED AUTHOR 03/17/2021 [facility] DATE CREATED AUTHOR AUTHOR'S ORGANIZ ATION 01/24/2024 [facility] DATE CREATED AUTHOR AUTHOR'S ORGANIZ ATION 04/19/2024 [facility] DATE CREATED AUTHOR AUTHOR'S ORGANIZ ATION 04/22/2024 [facility] DATE CREATED AUTHOR AUTHOR'S ORGANIZ ATION 08/10/2024 [facility] DATE CREATED AUTHOR AUTHOR'S ORGANIZ ATION 08/14/2024 [facility] DATE CREATED AUTHOR AUTHOR'S ORGANIZ ATION 02/16/2025 [facility] DATE CREATED AUTHOR AUTHOR'S ORGANIZ ATION 02/19/2025 [facility] DATE CREATED AUTHOR AUTHOR'S ORGANIZ ATION 03/25/2025 [facility] REASON FOR VISIT (unrecogniz ed section and content) FEVER, DIARRHEADiarrhea-3 da ys [phone] infection Care Teams (unrecognized sec tion and content) Team Status: Active Member Role Status Dates Ryan Olivas DO Primary Care Provider Active Team Status: Inactive Member Role Status Dates Ryan Olivas DO Primary Care Provider Active Start: February 13, 2024 End: February 13, 2024Kylie Cohen APRN [employer]-CAttentaylor ProviderActive Start: February 13, 2024 End: February 13, 2024 Team Status: Inactive Member Role Status Dates Ryan Olivas DO Primary Care Provide r, Attending Provider Active Start: April 11, 2024 End: April 11, 2024 Team Status: Inactive Member Role Status Dates Ryan Olivas DO Primary Care Provide r, Attending Provider Active Start: June 27, 2024 End: June 27, 2024 Team Status: Inactive Member Role Status Dates Ryan Olivas DO Primary Care Provider Active Start: June 29, 2024 End: June 29, 2024Chase Bloom ProviderActiveStart: June 29, 2024 End: June 29, 2024 Team Status: Inactive Member Role Status Dates Ryan Olivas DO Primary Care Provider Active Start: July 30, 2024 End: July 30Chase Edward ProviderActiveStart: July 30, 2024 End: July 30, 2024 Team Status: Active Member Role/Relationship Status Dates Ryan Olivas DO Primary Care Provider Active Team Status: Inactive Member Role/Relationship Status Dates Ryan Olivas DO Primary Care Provider Active Start: March 30, 2025 End: March 30braulio Olivas DOAttaracelis ProviderActiveStart: March 30, 2025 End: March 30, 2025 Goals (unrecognized section and content) Goals may be documented in a n alternate section FOR RECORDS PERTAINING TO PATIENTS WHO ARE OR HAVE BEEN ENROLLED IN A CHEMICAL DEPENDENCY/SUBSTANCEABUSE PROGRAM, SOME INFORMATION MAY BE OMITTED. This clinical summary was aggregated from multiple sources. Caution should be exercised in using it in the provision of clinical care. This summary normalizes information from multiple sources, and as a consequence, information in this document may materially change the coding, format and clinical context of patient data. In addition, data may be omitted in some cases. CLINICAL DECISIONS SHOULD BE BASED ON THE PRIMARY CLINICAL RECORDS. [facility] provides no warranty or guarantee of the accuracy or completeness of information in this document.
--- NOTE | 2025-04-02 13:52 | CT_ITS ---
The [address] [address] Patient Name: BERNADETTE BAUMANN MRN: [id number] date: 1965 Sex: F Assigned Patient Location: CT Current Patient Location: CT Accession/Order Number: [id number] Exam Date: 04/02/2025 13:55 Report Date: 04/03/2025 00:00 At the request of: SUKUMAR THOMAS DO Procedure: CT facial bones wo con MAXILLOFACIAL CT WITHOUT CONTRAST: CLINICAL HISTORY: facial injury, lip laceration, accidental fall COMPARISON: None TECHNIQUE: Spiral axial unenhanced images were obtained through the facial bones. Coronal and sagittal reconstructions were also reviewed. This CT exam was performed using one or more following dose reduction techniques: Automated exposure control, adjustment of the mA and/or kV according to patient size, or use of iterative reconstruction technique. FINDINGS: No facial bone fracture or bony destruction is identified. There is appropriate development and pneumatization of the paranasal sinuses. There is no mucosal thickening or fluid levels. The ostiomeatal complexes are patent. The intraorbital contents are unremarkable. CT/CT facial bones wo con IMPRESSION: NO EVIDENCE OF FACIAL BONE INJURY Impression dictated by: Pankaj Gómez M.D. 04/03/2025 12:00 AM Dictation Location: [facility]FORM[facility]LY [facility] HOS[facility]ITALR[facility]oom Electronically authenticated by: [id number] Date: 04/03/2025 00:00
== END 2025-04-02 13:41 | disposition home or self-care (01) ==
LOC: CT 13:45
PROVIDERS: PCP Internal Medicine; Visit Provider Internal Medicine
DX: S01.511A Laceration without foreign body of lip, initial encounter (principal); S09.93XA Unspecified injury of face, initial encounter; W19.XXXA Unspecified fall, initial encounter
CPT/HCPCS: 70486; 76376